=== PATIENT | male | born 1940 | race Caucasian/White ===

== ENCOUNTER 2017-10-03 18:32 | Observation (INO) ==
--- NOTE | 2017-10-03 18:54 | Emergency Department Note ---
Disposition Clinical Impression: Limb ataxia, Dysarthria Disposition: Admitted As Inpatient Condition: Good Neuro HPI - General Chief Complaint: ED Neuro Symptoms/Deficit Stated Complaint: Neuro Sx Time Seen by Provider: 10/03/17 18:38 Source: patient, EMS Mode of arrival: EMS Limitations: no limitations Nursing Notes Reviewed: Yes Vital Signs Reviewed: Yes - History of Present Illness HPI Narrative: 77-year-old male history of prior subdural hemorrhage treated with craniotomy, atrial fibrillation currently just on aspirin who presents to the ER with a chief complaint of altered mental status. Family reports he was last seen normal at noon today. They went out and then when they came back home at 2:30 the patient was having difficulty speaking slurring his words and had trouble standing. No prior history of CVA in the past. Reported history of A. fib but only on aspirin drench otherwise not anticoagulated. No improvement of symptoms since they first saw him. Deny any head injury. States he did have a subdural bleed months ago they thought to be posttraumatic and had a resulting craniotomy. No other complaints. Onset of Symptoms Date: 10/03/17 Onset of Symptoms Time: 12:00 Symptom Onset Unknown: No Timing confirmed by: family member Location: speech, left arm, left leg History of same: No Severity: moderate Quality: weakness Symptoms Improving: No Improves with: none Worsens with: none Context: sudden onset On Anticoagulants: No Associated symptoms: Denies: chest pain, headaches, nausea/vomiting Treatments Prior to Arrival: none - Related Data Allergies/Adverse Reactions: Allergies Allergy/AdvReac Type Severity Reaction Status Date / Time No Known Allergies Allergy Verified 07/17/17 09:47 All systems ED: reviewed and negative except as stated. Constitutional: Denies: fever Cardiovascular: Denies: chest pain Respiratory: Denies: dyspnea Gastrointestinal: Denies: abdominal pain, nausea, vomiting Neurological: Denies: headache, numbness, paresthesias Past Medical History - Past Medical History Attestation: Yes The following information was validated with the patient. Source: patient (t), obtained from family Medical history: Reports: atrial fibrillation, CVA Psychiatric history: Reports: no psych history - Social History Smoking Status: Never smoker Smokeless Tobacco Status: No Alcohol use: Reports: none Drug use: Reports: none Physical Exam - General Limitations: no limitations General appearance: alert, in no apparent distress - Head Head exam: atraumatic, normocephalic - Eye Eye exam: Present: normal appearance, EOMI - ENT ENT exam: normal exam - Neck Neck exam: Present: normal inspection, full ROM - Chest Chest inspection: Present: normal inspection, symmetric chest wall rise - Respiratory Respiratory exam: Present: normal lung sounds bilaterally - Cardiovascular Cardiovascular exam: Present: regular rate, normal rhythm, normal heart sounds - Abdominal Exam Abdominal exam: Present: soft, Non-Tender. Absent: tenderness - Extremities Exam Extremities exam: Present: normal inspection, full ROM - Expanded Upper Extremity Exam Shoulder exam: Present: normal inspection, full ROM Arm exam: Present: normal inspection, full ROM Elbow exam: Present: normal inspection, full ROM Forearm/Wrist exam: Present: normal inspection, full ROM Hand exam: Present: normal inspection, full ROM - Expanded Lower Extremity Exam Hip/Pelvis exam: Present: normal inspection, full ROM Upper leg exam: Present: normal inspection, full ROM Knee exam: Present: normal inspection, full ROM Lower leg exam: Present: normal inspection, full ROM Ankle exam: Present: normal inspection, full ROM Foot/toe exam: Present: normal inspection, full ROM Neurovascular/Tendon exam: Absent: motor deficit, sensory deficit - Neurological Exam Neurological exam: Present: alert, other (GCS 15. Nonfocal neurologic exam. He does demonstrate ataxia of the left upper extremity. Motor and sensation intact. Cranial nerves II through XII grossly intact.) - Skin Skin exam: Present: warm, dry, intact Course Course Narrative: Patient seen and examined. Last known well was reported as 2:30 initially by family. Stroke alert called. After speaking with them again they report his last Amal was around noon. We will obtain a CT of the head as well as labs and EKG. We will also discussed with [facility] neurology. - Reevaluation(s) Reevaluation #1: Conveyed recommendations by neurology with the patient and family. 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 Reevaluation #2: Discussed results of CTA with the patient's family. They would rather stay here at this time. We will discuss for admission. - Consultations Consultation #1: I spoke with the on-call [facility] stroke neurologist. Discussed the patient's history exam imaging and labs so far. They report without motor or sensory loss is likely a cerebellar etiology. Recommend that he is outside the timeframe for any retrieval and with a NIH of 2 he is not a candidate for intravascular retrieval. They do recommend a CTA of the head and neck to evaluate for potential thrombus. They are agreeable with the patient coming there if the family chooses. I will discuss with the family for what their wishes are. Vital Signs Temperature 99 F 10/03/17 18:33 Pulse Rate 66 10/03/17 18:33 Respiratory Rate 16 10/03/17 18:33 Blood Pressure 139/89 10/03/17 18:33 O2 Sat by Pulse Oximetry 90 10/03/17 18:33 Temperature 98 F 10/03/17 21:23 Pulse Rate 76 10/03/17 21:50 Respiratory Rate 18 10/03/17 21:50 Blood Pressure 135/90 10/03/17 21:50 O2 Sat by Pulse Oximetry 95 10/03/17 21:50 Oxygen Delivery Oxygen Delivery Nasal Cannula Neuro Symptoms/Deficit - MDM Narrative Medical decision making narrative: 77-year-old male presents to the ER due to dysarthria and limb ataxia. Last known well at noon today. He presented outside the window for TPA. He was noted to have an NIH of 2 here. He was taken for emergent CT which showed a stable subdural. Case discussed with [facility] neurology who recommended CTA of the head and neck which was unremarkable. Other labs reviewed and unremarkable. Family wanted to stay here. He was given an aspirin on the department. He is admitted to the hospitalist service for dysarthria and limb ataxia. - Lab Data Lab results reviewed: Yes I reviewed the patient's lab results. Result diagrams: 10/03/17 18:50 10/03/17 18:50 Lab Results 10/03/17 10/03/17 10/03/17 Range/Units 18:50 18:50 18:50 WBC 5.7 (4.3-11.1) K/mcL RBC 4.58 (4.19-5.50) M/mcL Hgb 13.4 (12.9-16.9) g/dL Hct 42.6 (37.5-50.1) % MCV 93.0 (83.0-100.0) fL MCH 29.3 (28.0-33.3) pg MCHC 31.5 L (31.6-35.5) g/dL RDW 14.3 (11.5-14.5) % Plt Count 162 (140-400) K/mcL MPV 9.7 (9.4-12.4) fL Immature Gran % 0.3 (0-4) % Seg Neutrophils % 63.8 % Lymphocytes % 17.5 % Monocytes % 11.9 % Eosinophils % 5.6 % Basophils % 0.9 % Neutrophils # 3.7 (1.6-8.9) K/mcL Lymphocytes # 1.0 (0.6-4.6) K/mcL Monocytes # 0.7 (0.0-1.3) K/mcL Eosinophils # 0.3 (0.0-0.6) K/mcL Basophils # 0.1 (0.0-0.2) K/mcL PT 12.4 H (9.4-12.1) Seconds INR 1.1 APTT 28.4 (26.0-36.0) Seconds Sodium 134 L (136-145) mEq/L Potassium 4.6 (3.5-5.1) mEq/L Chloride 100 (98-107) mEq/L Carbon Dioxide 29 (23-29) mEq/L BUN 12 (8-23) mg/dL Creatinine 0.73 (0.70-1.30) mg/dL Est GFR ( Amer) > 60 (> 60) Est GFR (Non-Af Amer) > 60 (> 60) BUN/Creatinine Ratio 16 (6-26) Glucose 105 (70-105) mg/dL Calculated Osmolality 278 L (280-300) Calcium 8.5 L (8.6-10.3) mg/dL Troponin I (< 0.04) ng/mL 10/03/17 Range/Units 18:50 WBC (4.3-11.1) K/mcL RBC (4.19-5.50) M/mcL Hgb (12.9-16.9) g/dL Hct (37.5-50.1) % MCV (83.0-100.0) fL MCH (28.0-33.3) pg MCHC (31.6-35.5) g/dL RDW (11.5-14.5) % Plt Count (140-400) K/mcL MPV (9.4-12.4) fL Immature Gran % (0-4) % Seg Neutrophils % % Lymphocytes % % Monocytes % % Eosinophils % % Basophils % % Neutrophils # (1.6-8.9) K/mcL Lymphocytes # (0.6-4.6) K/mcL Monocytes # (0.0-1.3) K/mcL Eosinophils # (0.0-0.6) K/mcL Basophils # (0.0-0.2) K/mcL PT (9.4-12.1) Seconds INR APTT (26.0-36.0) Seconds Sodium (136-145) mEq/L Potassium (3.5-5.1) mEq/L Chloride (98-107) mEq/L Carbon Dioxide (23-29) mEq/L BUN (8-23) mg/dL Creatinine (0.70-1.30) mg/dL Est GFR ( Amer) (> 60) Est GFR (Non-Af Amer) (> 60) BUN/Creatinine Ratio (6-26) Glucose (70-105) mg/dL Calculated Osmolality (280-300) Calcium (8.6-10.3) mg/dL Troponin I < 0.03 (< 0.04) ng/mL - Radiology Data Radiology results reviewed: Yes I reviewed the patient's radiology results. Head CT 10/03/17 18:38 IMPRESSION: Stable appearance of chronic left-sided subdural fluid collection. No acute process is seen, although artifact limits evaluation. D/ / 10/03/2017 19:20:03 Justin Batres MD / [facility] [place] Interpreting Provider: Justin Batres MD Head CTA 10/03/17 19:10 IMPRESSION: No flow limiting stenosis or branch occlusion detected within the head or neck. D/ / Kang Joshi MD / Kang Joshi MD Interpreting Provider: Kang Joshi MD Neck CTA 10/03/17 19:10 IMPRESSION: No flow limiting stenosis or branch occlusion detected within the head or neck. D/ / Kang Joshi MD / Kang Joshi MD Interpreting Provider: Kang Joshi MD - EKG Data EKG attestation: Yes I reviewed and interpreted this EKG. EKG results narrative: EKG demonstrates sinus rhythm with a rate of 75 bpm. Normal axis. Normal intervals. Normal R-wave progression. No gross ST elevations or depressions. No acute ischemic findings. No significant changes from previous EKG NIH Stroke Scale - Level of Consciousness LOC: Alert - LOC Questions LOC Questions: Answers both correctly - LOC Commands LOC Commands: Performs both correctly - Best Gaze Best Gaze: Normal - Visual Visual: No visual loss - Facial Palsy Facial Palsy: Normal - Motor Arms Motor Arm-Left: No drift for 10 seconds Motor Arm-Right: No drift for 10 seconds - Motor Legs Motor Leg-Left: No drift for 5 seconds Motor Leg-Right: No drift for 5 seconds - Limb Ataxia Limb Ataxia: Present in ONE limb - Sensory Sensory: Normal - Best Language Best Language: No aphasia - Dysarthria Dysarthria: Mild, slurs some words - Extinction and Inattention Extinction and Inattention: Normal - NIHSS Total Score NIHSS Total Score: 2 TPA Checklist - LKW: 3-4.5 hrs Add. Warnings/Precautions Patient/family understanding: The patient/family members have been counseled and understood the risk, benefit , and alternatives of treatment. Attestation Statement - Attestation Attestation: I examined this patient and my medical decision-making was reviewed with the Resident Physician, Dr. Nichols. I agree with the documented findings, disposition and treatment plan as described except to the extent set forth below. Patient is a 77-year-old elderly white male with a history of prior subdural with craniotomy and atrial fibrillation on aspirin who presents to the emergency department by EMS today following reported difficulty with speech and walking. Patient's arrived shortly following EMS arrival and states that the last known well was around noon today and patient's daughter had returned around 2:30 finding the patient with these changes and EMS was called. Patient arrives awake alert oriented to person place with dysarthria and ataxic limbs. Patient denied any falls or trauma, no symptoms of chest pain pressure or heaviness, no headaches or visual changes, and no focal weakness or numbness of the upper extremities or lower extremities. Due to patient's neurologic symptoms stroke alert was called by his outside the timeframe for any consideration for TPA. Patient was sent to CT following bedside Accu-Chek. I agree with the patient's physical exam findings as documented. Upon return from CT patient had an EKG obtained showing atrial fibrillation with a normal rate and no ischemia. Unchanged from prior EKGs. Patient had chest x-ray which was unremarkable. CT head noncontrast study shows evidence of his old subdural but no acute intracranial findings. Case was discussed with [facility] neurology and he will patient does not candidate for intervention. Did recommend further CTA of the head and neck for further evaluation of neurologic symptoms. Patient's neurologic exam remained stable over time. Patient's labs overall are unremarkable CTA head and neck was within normal limits. Patient was administered aspirin and will be admitted here to the medicine service for further evaluation and management. Case was discussed with the hospitalist accepted patient for admission.
[2017-10-03 18:56] LABS: Basophils # 0.1 K/mcL (0.0-0.2); Basophils % 0.9 %; Eosinophils # 0.3 K/mcL (0.0-0.6); Eosinophils % 5.6 %; Hematocrit 42.6 % (37.5-50.1); Hemoglobin 13.4 g/dL (12.9-16.9); Immature Granulocytes % 0.3 % (0-4); Lymphocytes % 17.5 %; Mean Corpuscular HGB Conc 31.5 g/dL (31.6-35.5); Mean Corpuscular Hemoglobin 29.3 pg (28.0-33.3); Mean Platelet Volume 9.7 fL (9.4-12.4); Monocytes # 0.7 K/mcL (0.0-1.3); Monocytes % 11.9 %; Neutrophils # 3.7 K/mcL (1.6-8.9); Platelet Count 162 K/mcL (140-400); Red Blood Count 4.58 M/mcL (4.19-5.50); Red Cell Distribution Width 14.3 % (11.5-14.5); Segmented Neutrophils % 63.8 %
[2017-10-03 19:06] LABS: INR 1.1; Prothrombin Time 12.4 Seconds (9.4-12.1)
[2017-10-03 19:08] LABS: Activated Partial Thrombo Time 28.4 Seconds (26.0-36.0)
[2017-10-03 19:44] LABS: BUN/Creatinine Ratio 16 (6-26); Blood Urea Nitrogen 12 mg/dL (8-23); Calcium 8.5 mg/dL (8.6-10.3); Carbon Dioxide 29 mEq/L (23-29); Chloride 100 mEq/L (98-107); Glucose 105 mg/dL (70-105); Osmolality,Calculated 278 (280-300); Potassium 4.6 mEq/L (3.5-5.1); Sodium 134 mEq/L (136-145); eGFR For African Americans > 60 (> 60); eGFR For Non-African Americans > 60 (> 60)
[2017-10-03] MEDS ORDERED: Aspirin 325 MG TABLET PO ONE (21:35)
[2017-10-03] MEDS ORDERED: Naloxone 0.4 MG/ML INJ IVP PRN (22:12)
[2017-10-03] MEDS ORDERED: Ringers Solution, Lactated 1,000 ML IVC SCH (22:15)
--- NOTE | 2017-10-03 22:16 | Internal Med History&Physical ---
Date of Encounter: 10/03/17 Time of Encounter: 22:16 Assessment and Plan (1) CVA (cerebral vascular accident) Current visit: Yes Status: Acute uncomfirmed CVA. Admitted to r/o CVA. Possible TIA ? check MRI brain in the a.m PT,OT, speech eval TTE, carotid dopplers neuro check dyspaghia diet, aspiration risk for now IVF continue ASA 325 for now. May consider escalate to plavix Hx of AFib chronic - AC contraindicated due to recurrent fall and hx of subdural hematoma from fall start lipitor Qualifiers: Laterality of affected vessel: unspecified Qualified Code(s): I63.419 - Cerebral infarction due to embolism of unspecified middle cerebral artery (2) Subdural hematoma, chronic Current visit: Yes Status: Acute chronic (3) Chronic a-fib Current visit: Yes Status: Acute on 325 ASA takes metoprolol once daily - will use best judgement and start toprol 50mg QD will bring med list in a.m anticoagulation contraindicated due to hx of fall and bleed (4) HTN (hypertension) Current visit: Yes Status: Acute does not know medications. will bring med list in a.m Qualifiers: Hypertension type: essential hypertension Qualified Code(s): I10 - Essential (primary) hypertension Internal Medicine - H&P: HPI Chief complaint: could not walk and speaking issues History of present illness: Mr. Zambrano is a 77 year old male who presents with acute onset could not walk and speaking issues. Admit for TIA/CVA eval. Last seen normal at noon time. Found abnormal at around 2pm with slurred speech , poor fluency. Also associated with b/l LE ataxia, weakness. Was sent to ED where they discussed with [facility] stroke center rec CT NC-head, CTA that was completed. On my evaluation at 10pm, his speech has improved. He has a hx of Chronic AFib on 325 ASA - not on anticoagulation because of recurrent falls. Has HTN and HLD. TIA in may 2013. In 2013, suffered from traumatic subdural from fall and had to be evacuated via craniotomy at [facility]. He lives with at home. In Jul 2017, had a fall that hurt his right shoulder with limited mobility and managed conservatively. EKG personally reviewed with jaden Jama, AFib CT/CT angio neck IMPRESSION: No flow limiting stenosis or branch occlusion detected within the head or neck. CT/CT angio head IMPRESSION: No flow limiting stenosis or branch occlusion detected within the head or neck. CT/CT stroke alert head wo con IMPRESSION: Stable appearance of chronic left-sided subdural fluid collection. No acute process is seen, although artifact limits evaluation. Past Med Surg Social Fam HX - Past Medical History Medical history: atrial fibrillation, CVA Psychiatric history: no psych history - Past Surgical History Surgical History: other (craniotomy) - Social History Smoking Status: Never smoker Smokeless Tobacco Status: No Alcohol use: none Drug use: none - Additional Family History Additional family history: HTN Internal Medicine - H&P: Meds 3 Allergy/AdvReac Type Severity Reaction Status Date / Time No Known Allergies Allergy Verified 07/17/17 09:47 All Systems PM: A 10-system review of systems was performed and is negative for pertinent findings except as documented above in the HPI. Review of systems: ROS 14 point review of systems reviewed as best as possible given presentation. Pertinent positive or negative as per HPI or otherwise reviewed as negative - Constitutional Vitals: Temp Pulse Resp BP Pulse Ox 98 F 76 18 135/90 95 10/03/17 21:23 10/03/17 21:50 10/03/17 21:50 10/03/17 21:50 10/03/17 21:50 Exam: General - AAO x 3 Psych - Appropriate affect/speech. No agitation Eyes - ROSALINO. Eye lids intact. No scleral icterus Neuro - Speech slurring that is preent, RUE with limited ROM due to fall and MSK injury, UE power 4/5, LE power 4-/5. Otherwise, no gross CN deficits. Heart - Irregularly irregular. S1 and S2 present. No added HS/murmurs appreciated. No elevated JVD appreciated. Lung - Adequate air entry b/l, No crackles/wheezes appreciated GI - Soft, non-tender. No hepatosplenomegaly/ascites. BS+ - No CVA/suprapubic tenderness or palpable bladder distension Skin - Intact. No rash/petechiae/ecchymosis. Warm extremities. +1 b/l LE edema Internal Med - H&P Results - Labs CBC & Chem 7: 10/03/17 18:50 10/03/17 18:50 Labs: Short CBC 10/03/17 Range/Units 18:50 WBC 5.7 (4.3-11.1) K/mcL Hgb 13.4 (12.9-16.9) g/dL Hct 42.6 (37.5-50.1) % Plt Count 162 (140-400) K/mcL Neutrophils # 3.7 (1.6-8.9) K/mcL BMP 10/03/17 18:50 Sodium 134 L Potassium 4.6 Chloride 100 Carbon Dioxide 29 BUN 12 Creatinine 0.73 Glucose 105 Calcium 8.5 L Cardiac Enzymes 10/03/17 Range/Units 18:50 Troponin I < 0.03 (< 0.04) ng/mL - Impressions ITS Impressions Head CT 10/03/17 18:38 IMPRESSION: Stable appearance of chronic left-sided subdural fluid collection. No acute process is seen, although artifact limits evaluation. D/ / 10/03/2017 19:20:03 Justin Batres MD / [facility] [place] Interpreting Provider: Justin Batres MD Head CTA 10/03/17 19:10 IMPRESSION: No flow limiting stenosis or branch occlusion detected within the head or neck. D/ / Kang Joshi MD / Kang Joshi MD Interpreting Provider: Kang Joshi MD Neck CTA 10/03/17 19:10
[2017-10-04 05:35] LABS: Alanine Aminotransferase 7 Units/L (7-52); Albumin 3.5 g/dL (3.5-5.7); Albumin/Globulin Ratio 1.1 (1.1-2.2); Alkaline Phosphatase 68 Units/L (34-104); Aspartate Amino Transferase 17 Units/L (13-39); BUN/Creatinine Ratio 17 (6-26); Bilirubin,Total 0.5 mg/dL (0.3-1.0); Blood Urea Nitrogen 10 mg/dL (8-23); Calcium 8.8 mg/dL (8.6-10.3); Carbon Dioxide 27 mEq/L (23-29); Chloride 100 mEq/L (98-107); Chol/HDL Ratio 3.9 (0-4.9); Cholesterol 140 mg/dL (< 200); Globulin 3.1 g/dL (2.4-3.5); Glucose 89 mg/dL (70-105); HDL Cholesterol 36 mg/dL (40-59); LDL Cholesterol,Calculated 92 mg/dL (0-99); Magnesium 1.7 mg/dL (1.6-2.6); Osmolality,Calculated 277 (280-300); Potassium 4.1 mEq/L (3.5-5.1); Sodium 134 mEq/L (136-145); Total Protein 6.6 g/dL (6.4-8.9); Triglycerides 59 mg/dL (< 150); eGFR For African Americans > 60 (> 60); eGFR For Non-African Americans > 60 (> 60)
[2017-10-04] MEDS ORDERED: Metoprolol XL (24 HR) Succ 50 MG TAB.ER.24H PO SCH (09:00)
[2017-10-04] MEDS ORDERED: Sennosides 8.6 MG TABLET PO PRN (14:58)
[2017-10-04] MEDS ORDERED: Benzonatate 100 MG CAPSULE PO PRN (14:58)
--- NOTE | 2017-10-04 16:00 | Internal Med Progress Note ---
Date of Encounter: 10/04/17 Time of Encounter: 15:58 - Assessment and plan (1) PNA (pneumonia) Current Visit: Yes Status: Acute Assessment and plan: Patient was wheezing with cough productive for some yellowish-white sputum on exam, he was decreased He states he has been coughing and wheezing for about 4 weeks. Chest x-ray revealed mild bibasilar airspace disease atelectasis or pneumonia DuoNeb's every 4 hours scheduled Levaquin daily 750 mg IV O2 to maintain sats greater than 88% in a patient with no home O2 Qualifiers: Pneumonia type: due to unspecified organism Qualified Code(s): J18.9 - Pneumonia, unspecified organism (2) TIA (transient ischemic attack) Current Visit: Yes Status: Acute Assessment and plan: Mr. Zambrano is a 77 year old male who presented with acute onset of inability to ambulate and slurred speech with difficulty finding words. He stated his son helped him down the steps to the couch and only remembered when he got up to go make his granddaughter a sandwhich and found out that his legs would not hold him. He was reported last seen normal at noon time. Found abnormal at around 2pm with slurred speech, poor fluency. Also associated with bilateral lower extremity ataxia and weakness. The squad was called and he was brought into the emergency room for evaluation and admitted for rule out CVA/TIA. They discussed with the [facility] stroke center with recommendations CT NC-head, CTA that was completed. On evaluation at 10pm his speech has improved. He has a history of Chronic AFib on 325 ASA - not on anticoagulation because of recurrent falls. Has HTN, HLD, TIA in May 2013. In 2013, suffered from traumatic subdural hematoma from fall which had to be evacuated via craniotomy at [facility]. He lives with at home. In Jul 2017, he had a fall which resulted in a very displaced comminuted right proximal humeral fracture with a right shoulder with limited mobility, managed conservatively. EKG atrial fibrillation with rate 75 CTA of the head and neck with no occlusion or stenosis, CT of the head stable, left-sided subdural hematoma MRI report is pending Echocardiogram and carotid duplex imaging has been completed but reports are pending Discussed with neurologist and he will see the patient in the a.m. Qualifiers: Transient cerebral ischemia type: unspecified Qualified Code(s): G45.9 - Transient cerebral ischemic attack, unspecified (3) Subdural hematoma, chronic Current Visit: No Status: Chronic Assessment and plan: Stable according to CT of the head obtained in the ER (4) HTN (hypertension) Current Visit: No Status: Chronic Assessment and plan: Pressure is stable continue her medications Qualifiers: Hypertension type: essential hypertension Qualified Code(s): I10 - Essential (primary) hypertension (5) Chronic a-fib Current Visit: No Status: Chronic Assessment and plan: Rate is controlled, anticoagulation contraindicated due to hx of fall and bleed continue asa 325 mg (6) Limb ataxia Current Visit: Yes Status: Acute Assessment and plan: please see note above PT and OT consult - Subjective Interval history: Patient is lying in bed in no acute distress. He is very much a conversationalist and we had quite a discussion about how he came to be in the hospital and his past hobbies and family choice. He does have some slurred speech which she said is new. He states his right arm is basically nonfunctional secondary to an old fracture that was never repaired. He is moving his other extremities and - Constitutional Vitals: Temp Pulse Resp BP Pulse Ox 97.9 F 56 16 149/90 96 10/04/17 15:47 10/04/17 15:47 10/04/17 15:47 10/04/17 15:47 10/04/17 15:47 General appearance: Present: cooperative, A&O X 3, pleasant, no acute distress, answers questions appropriately - Head Head exam: Present: atraumatic, normocephalic - Eye Eye exam: Present: conjuntiva pink, sclera anicteric - Neck Neck exam general surgery: Present: supple, trachea midline. Absent: lymphadenopathy - Respiratory Respiratory exam: Present: decreased breath sounds, wheezes. Absent: accessory muscle use, chest wall tenderness, rales, respiratory distress, rhonchi Additional comments: Cough on forced expiration - Cardiovascular Cardiovascular exam: Present: irregular rhythm. Absent: diastolic murmur, gallop, JVD, rubs, systolic murmur - GI/Abdominal GI/Abdominal exam: Present: normal bowel sounds, soft, no peritoneal signs. Absent: distended, tenderness - Extremities Exam Extremities exam: Present: warm, radial pulses palpable and symmetrical. Absent : calf tenderness, cyanotic, pedal edema Additional comments: Right upper extremity with old fracture and limited strength and mobility - Neurological Exam Neurological exam: Present: alert, oriented X3. Absent: strengths equal and symetr throughout, pronater drift, facial droop, speech deficit Additional comments: Slightly slurred speech - Skin Skin exam: Present: dry, intact, warm Internal Medicine: Result - Labs CBC & Chem 7: 10/03/17 18:50 10/04/17 04:04 Labs: BMP 10/04/17 04:04 Sodium 134 L Potassium 4.1 Chloride 100 Carbon Dioxide 27 BUN 10 Creatinine 0.60 L Glucose 89 Calcium 8.8 Liver Function 10/04/17 Range/Units 04:04 Total Bilirubin 0.5 (0.3-1.0) mg/dL AST 17 (13-39) Units/L ALT 7 (7-52) Units/L Alkaline Phosphatase 68 (34-104) Units/L Albumin 3.5 (3.5-5.7) g/dL - ABG Interpretation ABG results: PT/INR, D-dimer PT 12.4 Seconds (9.4-12.1) H 10/03/17 18:50 - Impressions Impressions Chest X-Ray 10/04/17 12:05 IMPRESSION: Mild bibasilar airspace disease, atelectasis or pneumonia. D/ / Cadence Delgado Cha, MD / Cadence Delgado Cha, MD Interpreting Provider: Cadence Delgado Cha, MD Consult Discharge Plan - Plan Referrals: Philip Jimenes MD [Primary Care Provider] -
[2017-10-04] MEDS: Levofloxacin 750 MG/150 ML 750 MG/150 ML BAG IVPB SCH (17:27)
[2017-10-04] MEDS: amLODIPine 5 MG TABLET PO SCH (17:28)
[2017-10-04] MEDS: Aspirin Enteric Coated 325 MG Tablet PO SCH (17:28)
[2017-10-04] MEDS: Metoprolol XL (24 HR) Succ 50 MG TAB.ER.24H PO SCH (17:28)
[2017-10-04 18:50] LABS: Adenovirus Not Detected (Not Detect); Bordetella Pertussis Not Detected (Not Detect); Chlamydophila pneumoniae Not Detected (Not Detect); Coronavirus 229E Not Detected (Not Detect); Coronavirus HKU1 Not Detected (Not Detect); Coronavirus NL63 Not Detected (Not Detect); Coronavirus OC43 Not Detected (Not Detect); Human Metapneumovirus Not Detected (Not Detect); Human Rhinovirus/Enterovirus Not Detected (Not Detect); Influenza A Subtype 2009 H1 Not Detected (Not Detect); Influenza A Untypeable Not Detected (Not Detect); Influenza B Not Detected (Not Detect); Mycoplasma pneumoniae Not Detected (Not Detect); Parainfluenza Virus 1 Not Detected (Not Detect); Parainfluenza Virus 2 Not Detected (Not Detect); Parainfluenza Virus 3 Not Detected (Not Detect); Parainfluenza Virus 4 Not Detected (Not Detect); Respiratory Syncytial Virus Not Detected (Not Detect)
[2017-10-04] MEDS: Ipratropium/Albuterol Neb 3 ML IH SCH ×3 (19:17→23:49)
[2017-10-05] MEDS: 0.9 % Sodium Chloride 1,000 ML IVC SCH ×2 (04:00→20:27)
[2017-10-05] MEDS: Ipratropium/Albuterol Neb 3 ML IH SCH ×5 (04:18→20:11)
[2017-10-05 04:45] LABS: Basophils % 0.8 %; Eosinophils # 0.3 K/mcL (0.0-0.6); Eosinophils % 6.7 %; Hematocrit 42.3 % (37.5-50.1); Hemoglobin 13.3 g/dL (12.9-16.9); Immature Granulocytes % 0.3 % (0-4); Lymphocytes # 1.2 K/mcL (0.6-4.6); Lymphocytes % 32.8 %; Mean Corpuscular HGB Conc 31.4 g/dL (31.6-35.5); Mean Corpuscular Volume 92.4 fL (83.0-100.0); Mean Platelet Volume 10.3 fL (9.4-12.4); Monocytes # 0.6 K/mcL (0.0-1.3); Monocytes % 15.2 %; Neutrophils # 1.7 K/mcL (1.6-8.9); Platelet Count 151 K/mcL (140-400); Red Blood Count 4.58 M/mcL (4.19-5.50); Red Cell Distribution Width 14.1 % (11.5-14.5); Segmented Neutrophils % 44.2 %
[2017-10-05] MEDS: Magnesium Oxide 400 MG TABLET PO SCH (07:29)
[2017-10-05] MEDS: Metoprolol XL (24 HR) Succ 50 MG TAB.ER.24H PO SCH (07:29)
[2017-10-05] MEDS: Levofloxacin 750 MG/150 ML 750 MG/150 ML BAG IVPB SCH (07:30)
[2017-10-05] MEDS: Aspirin Enteric Coated 325 MG Tablet PO SCH (07:30)
[2017-10-05] MEDS: amLODIPine 5 MG TABLET PO SCH (07:30)
--- NOTE | 2017-10-05 10:40 | Neurology - Consult Note ---
<BiancaParvez soni - Last Filed: 10/05/17 16:34> Date of Encounter: 10/05/17 Time of Encounter: 10:36 Assessment and Plan (1) Limb ataxia Current Visit: Yes Status: Acute Patient presents with lower extremity weakness. Patient states that he was profoundly weak with difficulty walking prior to arrival but feels better at this time. Muscle strength testing reveals no weakness in the lower extremity however the patient does have an ataxic gait. The states that he has always had balance issues. MRI of the brain as well head and neck CTA were unremarkable for any acute abnormality. This does not appear to be CVA however TIA certainly differentials the patient is at risk even his underlying hypertension and atrial fibrillation which is not anticoagulated for due to history of a subdural hematoma. His weakness could also be a manifestation of his influenza and pneumonia, this is more likely given that the patient has improved over the last several days. Patient has cerebellar atrophy on MRI which could certainly be contributing to his ataxic findings. We will check B12 and folate as well as CK. (2) Influenza A Current Visit: Yes Status: Acute (3) Subdural hematoma, chronic Current Visit: No Status: Chronic (4) Chronic a-fib Current Visit: No Status: Chronic History of Present Illness Chief complaint: Weakness HPI: Mr. Zambrano is a 77 year old male with history of "subdural hematoma," atrial fibrillation, hypertension who presents with lower extremity weakness. Patient states that on the morning of arrival he attempted to get up and walk to the kitchen to make a sandwich. He found that he had difficulty getting up off the couch and had a very difficult time walking. He states he was able to shuffle his feet but could not lift his feet off the ground and walk. After speaking to his he called the squad for profound weakness. His stated that his speech appeared to be slurred at that time. He states that 3 days prior to arrival he had constant runny nose, sneezing, coughing. He states he normally has bowel problems at baseline and should use a cane at home but does not. He has a history of multiple falls including a fall 4 years ago which resulted in a subdural hematoma for which he underwent neurosurgical intervention including craniotomy. At this time he denies any new weakness, numbness, tingling, vision changes Past Med Surg Social Fam HX - Past Medical History Medical history: atrial fibrillation, CVA Psychiatric history: no psych history - Past Surgical History Surgical History: other - Social History Smoking Status: Never smoker Smokeless Tobacco Status: No Alcohol use: none Drug use: none - Family History Mother Adopted: No Living Status: Age at : 89 Hx Family Neurologic Disorders: Yes (Stroke) Father Living Status: Age at : 69 Hx Family Cardiac Disorders: Yes ([place]) Medications and Allergies Benzonatate [Benzonatate] 100 mg PO TID PRN 10/04/17 [History] Losartan Potassium [Cozaar] 100 mg PO DAILY 10/04/17 [History] Magnesium Oxide [Mag-Oxide] 400 mg PO DAILY 10/04/17 [History] Metoprolol XL (24 HR) Succ [Toprol XL] 100 mg PO DAILY 10/04/17 [History] Omeprazole [PriLOSEC] 20 mg PO DAILY 10/04/17 [History] Sennosides [Senna] 8.6 mg PO DAILY PRN 10/04/17 [History] Tamsulosin HCl [Flomax] 0.4 mg PO DAILY 10/04/17 [History] amLODIPine [Norvasc] 5 mg PO DAILY 10/04/17 [History] 3 Allergy/AdvReac Type Severity Reaction Status Date / Time No Known Allergies Allergy Verified 10/04/17 11:00 All Systems: A 10-system review of systems was performed and is negative for pertinent findings except as documented above in the HPI. Physical Examination - Vital Signs Vital Signs: Initial Vital Signs Temp Pulse Resp BP Pulse Ox 99 F 66 16 139/89 90 10/03/17 18:33 10/03/17 18:33 10/03/17 18:33 10/03/17 18:33 10/03/17 18:33 - Constitutional General appearance: comfortable - Neurologic Sensorimotor examination: intact Motor examination - right side: 1/5: deltoids, 4/5: biceps, triceps, wrist flexion, wrist extension, mortgage loan reviewer, 5/5: hip flexors, tibialis Anterior, quadriceps , toe extension (EHL), plantarflexion Motor examination - left side: 5/5: deltoids, biceps, triceps, wrist flexion, wrist extension, hip flexors, mortgage loan reviewer, quadriceps, tibialis Anterior, toe extension (EHL), plantarflexion Detailed sensory examination: intact Reflex and gait examination: ataxic gate Reflexes: Biceps: 0, Brachioradialis: 0, Patella: 2+, Achilles: 2+ Mental Status Examination: awake, alert, oriented to person, oriented to place, oriented to time, follows commands appropriately, answers questions appropriately Cranial nerve examination: PERRL, EOMI, visual samuels intact, sensory to face intact, no facial asymmetry is present, no dysarthria, flexes SCM and trapezius muscles symmetrically with full power, tongue protrudes midline, no atrophy or facial fasiculations present Cerebellar examination: performs finger to nose and heel to ortega symmetrically without ataxia Results - Laboratory Findings CBC and BMP: 10/05/17 03:29 10/04/17 04:04 Abnormal lab findings: Abnormal lab results WBC 3.8 K/mcL (4.3-11.1) L 10/05/17 03:29 MCHC 31.4 g/dL (31.6-35.5) L 10/05/17 03:29 PT 12.4 Seconds (9.4-12.1) H 10/03/17 18:50 Sodium 134 mEq/L (136-145) L 10/04/17 04:04 Creatinine 0.60 mg/dL (0.70-1.30) L 10/04/17 04:04 Calculated Osmolality 277 (280-300) L 10/04/17 04:04 HDL Cholesterol 36 mg/dL (40-59) L 10/04/17 04:04 Influenza A (H3) PCR DETECTED (Not Detect) A 10/04/17 15:26 Consult Discharge Plan - Plan Referrals: Philip Jimenes MD [Primary Care Provider] - <Parvez Grewal - Last Filed: 10/05/17 16:50> Date of Encounter: 10/05/17 Time of Encounter: 16:44 Assessment and Plan (1) Limb ataxia Current Visit: Yes Status: Acute I agree with Dr. Owens's recommendations and assessment as stated above. I believe that he will continue to improve as his influenza resolves, he regains her strength. Other differentials considered and ruled out were; Guillain- Bellwood syndrome, viral myositis, thoracic or lumbar myelopathy, and there is no evidence of acute cerebrovascular ischemic event. The epidural hematoma located in the left frontoparietal region is stable. This is not effective in the current admission. I will reevaluate him at your request. History of Present Illness HPI: Mr. Zambrano is a 77 year old male who was seen for neurologic consultation secondary to generalized weakness and imbalance. Chart was reviewed and the patient was examined independently. The case was discussed with Dr. Hernandez. I agree with his assessment as stated above. All Systems: A 10-system review of systems was performed and is negative for pertinent findings except as documented above in the HPI. Review of Systems: 10 point review of systems is consistent with a history of present illness and is otherwise negative. Physical Examination - Vital Signs Vital Signs: Initial Vital Signs Temp Pulse Resp BP Pulse Ox 99 F 66 16 139/89 90 10/03/17 18:33 10/03/17 18:33 10/03/17 18:33 10/03/17 18:33 10/03/17 18:33 - Neurologic Cerebellar examination: performs finger to nose and heel to ortega symmetrically without ataxia (He performs finger to nose without ataxia, however he is ataxic with [id number] bilaterally.) Results - Laboratory Findings CBC and BMP: 10/05/17 03:29 10/04/17 04:04 Abnormal lab findings: Abnormal lab results WBC 3.8 K/mcL (4.3-11.1) L 10/05/17 03:29 MCHC 31.4 g/dL (31.6-35.5) L 10/05/17 03:29 PT 12.4 Seconds (9.4-12.1) H 10/03/17 18:50 Sodium 134 mEq/L (136-145) L 10/04/17 04:04 Creatinine 0.60 mg/dL (0.70-1.30) L 10/04/17 04:04 Calculated Osmolality 277 (280-300) L 10/04/17 04:04 HDL Cholesterol 36 mg/dL (40-59) L 10/04/17 04:04 Vitamin B12 6571 pg/mL (250-1100) H 10/05/17 11:00 Folate 20.1 ng/mL (3.0-16.0) H 10/05/17 11:00 Influenza A (H3) PCR DETECTED (Not Detect) A 10/04/17 15:26
--- NOTE | 2017-10-05 10:50 | Internal Med Progress Note ---
Date of Encounter: 10/05/17 Time of Encounter: 10:47 - Assessment and plan (1) PNA (pneumonia) Current Visit: Yes Status: Acute Assessment and plan: Differential is acute bronchitis versus pneumonia secondary to type a flu Patient was wheezing with cough productive for some yellowish-white sputum on exam and he was decreased 10/04/17 On examination this morning he has no wheezes, cough is much improved per patient report, air flow is increased He stated he had been coughing and wheezing for about 4 weeks. Viral panel was positive for flu type a Chest x-ray revealed mild bibasilar airspace disease atelectasis or pneumonia DuoNeb's every 4 hours scheduled Levaquin daily 750 mg IV O2 to maintain sats greater than 88% in a patient with no home O2 currently on 2 L nasal cannula. Will need 6 minute walk test on discharge Qualifiers: Qualified Code(s): J18.9 - Pneumonia, unspecified organism (2) TIA (transient ischemic attack) Current Visit: Yes Status: Acute Assessment and plan: Mr. Zambrano is a 77 year old male who presented with acute onset of inability to ambulate and slurred speech with difficulty finding words. He stated his son helped him down the steps to the couch and only remembered when he got up to go make his granddaughter a sandwhich and found out that his legs would not hold him. He was reported last seen normal at noon time. Found abnormal at around 2pm with slurred speech, poor fluency. Also associated with bilateral lower extremity ataxia and weakness. The squad was called and he was brought into the emergency room for evaluation and admitted for rule out CVA/TIA. They discussed with the [facility] stroke center with recommendations CT NC-head, CTA that was completed. On evaluation at 10pm his speech has improved. He has a history of Chronic AFib on 325 ASA - not on anticoagulation because of recurrent falls. Has HTN, HLD, TIA in May 2013. In 2013, suffered from traumatic subdural hematoma from fall which had to be evacuated via craniotomy at [facility]. He lives with at home. In Jul 2017, he had a fall which resulted in a very displaced comminuted right proximal humeral fracture with a right shoulder with limited mobility, managed conservatively. EKG atrial fibrillation with rate 75 CTA of the head and neck with no occlusion or stenosis, CT of the head stable, left-sided subdural hematoma MRI report is nothing acute, noted no change in the subdural hematoma Echocardiogram reviewed with LVEF 60%, indeterminate diastolic function, dilated RV with normal function, no evidence of PAF with agitated saline. Carotid duplex imaging has been completed but reports are pending Neuro consult Qualifiers: Qualified Code(s): G45.9 - Transient cerebral ischemic attack, unspecified (3) Subdural hematoma, chronic Current Visit: No Status: Chronic Assessment and plan: Stable according to CT of the head obtained in the ER and MRI report (4) HTN (hypertension) Current Visit: No Status: Chronic Assessment and plan: Blood Pressure is stable continue his medications Qualifiers: Qualified Code(s): I10 - Essential (primary) hypertension (5) Chronic a-fib Current Visit: No Status: Chronic Assessment and plan: Rate is well controlled, anticoagulation contraindicated due to hx of fall and bleed continue asa 325 mg (6) Limb ataxia Current Visit: Yes Status: Acute Assessment and plan: please see note above PT and OT consulted - Subjective Interval history: Patient is lying in bed in no acute distress. He is speaking normally this morning, the slurring of his speech has resolved. He passed his speech swallow is not placed on a regular diet. He did test positive for flu A and we discussed his recent sick contacts. He denies fever, chills, chest pain, shortness of breath, abdominal pain or discomfort, urinary changes, weakness of the extremities, or headache/dizziness. - Constitutional Vitals: Temp Pulse Resp BP Pulse Ox 97.4 F L 73 16 120/68 98 10/05/17 07:05 10/05/17 07:05 10/05/17 07:23 10/05/17 07:05 10/05/17 07:55 General appearance: Present: cooperative, A&O X 3, pleasant, no acute distress, answers questions appropriately - Head Head exam: Present: atraumatic, normocephalic - Eye Eye exam: Present: PERRL, conjuntiva pink, sclera anicteric Pupils: Present: PERRL - Neck Neck exam general surgery: Present: supple, trachea midline. Absent: lymphadenopathy, tenderness - Respiratory Respiratory exam: Present: CTAB. Absent: accessory muscle use, rales, respiratory distress, rhonchi, wheezes - Cardiovascular Cardiovascular exam: Present: irregular rhythm, +S1, +S2. Absent: diastolic murmur, gallop, rubs, systolic murmur - GI/Abdominal GI/Abdominal exam: Present: normal bowel sounds, soft, no peritoneal signs. Absent: distended, tenderness - Extremities Exam Extremities exam: Present: warm, radial pulses palpable and symmetrical. Absent : calf tenderness, cyanotic, pedal edema Additional comments: Right upper extremity with decreased range of motion and use secondary to old fracture - Neurological Exam Neurological exam: Present: alert, oriented X3, no focal deficits. Absent: pronater drift, facial droop, speech deficit - Skin Skin exam: Present: dry, intact, warm Internal Medicine: Result - Labs CBC & Chem 7: 10/05/17 03:29 10/04/17 04:04 Labs: Short CBC 10/05/17 Range/Units 03:29 WBC 3.8 L (4.3-11.1) K/mcL Hgb 13.3 (12.9-16.9) g/dL Hct 42.3 (37.5-50.1) % Plt Count 151 (140-400) K/mcL Neutrophils # 1.7 (1.6-8.9) K/mcL - ABG Interpretation ABG results: PT/INR, D-dimer PT 12.4 Seconds (9.4-12.1) H 10/03/17 18:50 - Impressions Impressions Chest X-Ray 10/04/17 12:05 IMPRESSION: Mild bibasilar airspace disease, atelectasis or pneumonia. D/ / Cadence Delgado Cha, MD / Cadence Delgado Cha, MD Interpreting Provider: Cadence Delgado Cha, MD Brain MRI 10/04/17 22:14 IMPRESSION: No acute intracranial abnormality. Status post left hemispheric craniotomy. Extra-axial collection along the left frontal parietal convexity measuring up to 1.2 cm in maximal thickness, stable since July 15, 2014. Mild local mass effect upon the subjacent brain parenchyma, without evidence of midline shift. Mild parenchymal volume loss. Minimal chronic microvascular disease. D/ / Canelo Kimball MD / Canelo Kimball MD Interpreting Provider: Canelo Kimball MD Echocardiogram 10/04/17 22:14 Impressions: LVEF 60%. Indeterminate diastolic function. Dilated RV with normal function. Bi-atrial enlargement. Mild mitral regurgitation. Mild tricuspid regurgitation. Mild pulmonary hypertension. Mild pulmonic regurgitation. No evidence of PFO with agitated saline contrast. Left Ventricular Wall Motion: Rest Echo Findings The mid anterior septal and mid inferior lateral rudolph were not visualized. All other wall segments showed normal motion. Findings: Study Quality * Technically challenging due to body habitus. ECG Findings * Atrial fibrillation. Left Ventricle * LVEF 60%. * Normal LV size. * LV wall thickness measurements not well obtained. * Indeterminate diastolic function. Right Ventricle * Dilated RV with normal function. Left Atrium * Severely dilated left atrium. Right Atrium * Severely dilated right atrium. Aortic Valve * Aortic valve not well visualized. * Trace aortic regurgitation. * No aortic stenosis. Mitral Valve * Normal mitral valve structure. * No mitral stenosis. * Mild mitral regurgitation. Tricuspid Valve * Tricuspid valve not well visualized. * Mild tricuspid regurgitation. * Estimated RA pressure is 8 mmHg. * Estimated RVSP is 40 mmHg. * Mild pulmonary hypertension. Pulmonic Valve * Pulmonic valve is not well visualized. * No pulmonic stenosis. * Mild pulmonic regurgitation. Pulmonary Artery * Pulmonary artery not well visualized. Aorta * Normally sized aortic root. Pericardium * There is no pericardial effusion present. Interatrial Septum * No evidence of PFO by color Doppler. * No evidence of PFO with agitated saline contrast. IVC * The IVC is not dilated. * < 50% respiratory change. Consult Discharge Plan - Plan Referrals: Philip Jimenes MD [Primary Care Provider] -
[2017-10-05 11:57] LABS: Folate 20.1 ng/mL (3.0-16.0)
[2017-10-06] MEDS: Ipratropium/Albuterol Neb 3 ML IH SCH ×5 (00:33→15:12)
[2017-10-06] MEDS: Metoprolol XL (24 HR) Succ 50 MG TAB.ER.24H PO SCH (08:43)
[2017-10-06] MEDS: Levofloxacin 750 MG/150 ML 750 MG/150 ML BAG IVPB SCH (08:44)
[2017-10-06] MEDS: amLODIPine 5 MG TABLET PO SCH (08:44)
[2017-10-06] MEDS: Aspirin Enteric Coated 325 MG Tablet PO SCH (08:44)
[2017-10-06] MEDS: Magnesium Oxide 400 MG TABLET PO SCH (08:44)
--- NOTE | 2017-10-06 13:16 | Discharge Summary ---
Date of Encounter: 10/06/17 Time of Encounter: 10:00 - Discharge Diagnosis (1) Respiratory failure with hypoxia Priority: Primary Status: Acute Comments: Patient presented to the ER initially with SPO2 90% on room air requiring supplemental oxygen-he was positive for influenza/pneumonia which is contributing to his hypoxia. Patient underwent a 6 minute walk test with oxygen saturations dropping down 85% he will require home oxygen Qualifiers: Chronicity: acute Qualified Code(s): J96.01 - Acute respiratory failure with hypoxia (2) Influenza A Priority: Secondary Status: Acute Comments: He had been experiencing cough and nasal congestion influenza swab was positive for influenza A We will continue with Tamiflu -in order to complete 10 day Continue with oxygen (3) PNA (pneumonia) Priority: Secondary Status: Acute Comments: 1 CXR Mild bibasilar airspace disease, atelectasis or pneumonia.continue Levaquin for five days 2 hypoxia on room air and on exertion continue with oxygen Qualifiers: Pneumonia type: due to unspecified organism Laterality: unspecified laterality Lung location: unspecified part of lung Qualified Code(s): J18.9 - Pneumonia, unspecified organism (4) Subdural hematoma, chronic Priority: Secondary Status: Chronic Comments: 1 patient has history of subdural hematoma from fall status post craniotomy- will continue with aspirin no other anticoagulation for now (5) Limb ataxia Priority: Secondary Status: Acute Comments: Patient has been experiencing lower extremityweakness-MRI of the brain and CTA were unremarkable-patient was seen by neurology-small. Be CVA however possibly TIA risk factors hypertension and atrial fibrillation not on anticoagulation. As well as weakness possibly related to influenza/pneumonia Seen by PT and OT-we will discharge with walker Require home health - Discharge Medications Prescriptions: Ipratropium/Albuterol Neb [Duoneb] 3 ml IH Q6HR #100 vial.neb levoFLOXacin [Levaquin] 750 mg PO DAILY #5 tablet Oseltamivir [Tamiflu] 75 mg PO BID #14 capsule Home Medications: Benzonatate 100 mg PO TID PRN 10/04/17 [History] Losartan Potassium [Cozaar] 100 mg PO DAILY 10/04/17 [History] Magnesium Oxide [Mag-Oxide] 400 mg PO DAILY 10/04/17 [History] Metoprolol XL (24 HR) Succ [Toprol Xl] 100 mg PO DAILY 10/04/17 [History] Omeprazole [PriLOSEC] 20 mg PO DAILY 10/04/17 [History] Sennosides [Senna] 8.6 mg PO DAILY PRN 10/04/17 [History] Tamsulosin HCl [Flomax] 0.4 mg PO DAILY 10/04/17 [History] amLODIPine [Norvasc] 5 mg PO DAILY 10/04/17 [History] Aspirin Enteric Coated [Aspirin EC] 325 mg PO DAILY tablet. 10/06/17 [Rx] Ipratropium/Albuterol Neb [Duoneb] 3 ml IH Q6HR #100 vial.neb 10/06/17 [Rx] Oseltamivir [Tamiflu] 75 mg PO BID #14 capsule 10/06/17 [Rx] levoFLOXacin [Levaquin] 750 mg PO DAILY #5 tablet 10/06/17 [Rx] Allergies/Adverse Reactions: 3 Allergy/AdvReac Type Severity Reaction Status Date / Time No Known Allergies Allergy Verified 10/04/17 11:00 Date of admission: 10/03/17 22:29 Primary care physician: Philip Jimenes MD Consults: 10/04/17 15:51 Consult to Neurology [CONS] Routine Consulting Provider: Neurology [facility] Reason for Consult: tia vs cva, hx subdural hematoma Time Notified: 15:52 Call Completed: Yes Discharging clinician: Kandice Goldstein Anticipated date of discharge: 10/06/17 - Patient Status Disposition: Home Health Service Condition: Good Functional capacity at discharge: uses cane/walker Overall status at discharge: patient is progressing back to baseline - Discharge Instructions Instructions: Levofloxacin (By mouth), Ipratropium/Albuterol (By breathing), Oseltamivir (By mouth), Influenza (GEN), Pneumonia (DC) Follow Up With: Wesley Mcdonnell MD [Partnered Physician] - 10/19/17 9:40 am Philip Jimenes MD [Primary Care Provider] - 10/12/17 1:15 pm - Diet and Activity Activity: ambulate only with your walker, wear oxygen at all times Diet: advance to your usual diet Interval History: Differential is acute bronchitis versus pneumonia secondary to type a flu Patient was wheezing with cough productive for some yellowish-white sputum on exam and he was decreased 10/04/17 On examination this morning he has no wheezes, cough is much improved per patient report, air flow is increased He stated he had been coughing and wheezing for about 4 weeks. Viral panel was positive for flu type a Chest x-ray revealed mild bibasilar airspace disease atelectasis or pneumonia DuoNeb's every 4 hours scheduled Levaquin daily 750 mg IV O2 to maintain sats greater than 88% in a patient with no home O2 currently on 2 L nasal cannula. Will need 6 minute walk test on discharge Qualifiers: Qualified Code(s): J18.9 - Pneumonia, unspecified organism (2) TIA (transient ischemic attack) Current Visit: Yes Status: Acute Assessment and plan: Mr. Zambrano is a 77 year old male who presented with acute onset of inability to ambulate and slurred speech with difficulty finding words. He stated his son helped him down the steps to the couch and only remembered when he got up to go make his granddaughter a sandwhich and found out that his legs would not hold him. He was reported last seen normal at noon time. Found abnormal at around 2pm with slurred speech, poor fluency. Also associated with bilateral lower extremity ataxia and weakness. The squad was called and he was brought into the emergency room for evaluation and admitted for rule out CVA/TIA. They discussed with the [facility] stroke center with recommendations CT NC-head, CTA that was completed. On evaluation at 10pm his speech has improved. He has a history of Chronic AFib on 325 ASA - not on anticoagulation because of recurrent falls. Has HTN, HLD, TIA in May 2013. In 2013, suffered from traumatic subdural hematoma from fall which had to be evacuated via craniotomy at [facility]. He lives with at home. In Jul 2017, he had a fall which resulted in a very displaced comminuted right proximal humeral fracture with a right shoulder with limited mobility, managed conservatively. EKG atrial fibrillation with rate 75 CTA of the head and neck with no occlusion or stenosis, CT of the head stable, left-sided subdural hematoma MRI report is nothing acute, noted no change in the subdural hematoma Echocardiogram reviewed with LVEF 60%, indeterminate diastolic function, dilated RV with normal function, no evidence of PAF with agitated saline. Carotid duplex imaging has been completed but reports are pending Neuro consult Hospital course: Mr. Zambrano is a 77 year old male who presented to the emergency department with lower extremity weakness. On morning of 10/03/2017 patient attempted to get up and walking to the kitchen to make a sandwich. He was having difficulty getting up off the couch and difficulty walking. He was able to shuffle his feet but was unable to lift his feet off the ground. His reports that he does have a history of balance issues. He has had several falls in the past 1 fall occurred 4 years ago which resulted in a subdural hematoma he underwent neurosurgical intervention including craniotomy. He has been experiencing runny nose sneezing and coughing over the past 3 days. Neurology saw patient- MRI of brain as well as head and neck CTA were unremarkable neurology does not suspect CVA however possible TIA due to history of atrial fibrillation and patient is not anticoagulated due to subdural hematoma and hypertension. As well as weakness could be related to influenza pneumonia. Patient was initiated on Tamiflu as well as Levaquin. He required oxygen support which he normally does not use a home. Attempted to ambulate patient without oxygen saturations dropped to 85%. He does have history of right sided right arm weakness which is chronic from a previous fall He underwent physical therapy and occupational therapy he will require outpatient home health. Presently he is hemodynamically stable at this time satting 98% on 2 L nasal cannula he is not wheezing denies any pain or discomfort and does not appear to be in respiratory distress. I reviewed medications, O2 and follow up with PCP in one week answered patient's and questions who verbalized understanding Time spent discussing smoking cessation with patient: 3 to 10 minutes - Time Spent with Patient Total time spent providing and/or coordinating discharge services: Less than 30 minutes - Constitutional Vitals: Temp Pulse Resp BP Pulse Ox 98.0 F 83 20 139/91 98 10/06/17 11:10 10/06/17 11:10 10/06/17 11:11 10/06/17 11:10 10/06/17 11:11 General appearance: Present: cooperative, A&O X 3, pleasant, no acute distress, answers questions appropriately - Head Head exam: Present: atraumatic, normocephalic - Eye Eye exam: Present: PERRL, conjuntiva pink, sclera anicteric Pupils: Present: PERRL - Neck Neck exam general surgery: Present: supple, trachea midline. Absent: lymphadenopathy - Respiratory Respiratory exam: Present: CTAB. Absent: accessory muscle use, rales, rhonchi, wheezes - Cardiovascular Cardiovascular exam: Present: RRR, +S1, +S2. Absent: diastolic murmur, gallop, rubs, systolic murmur - GI/Abdominal GI/Abdominal exam: Present: normal bowel sounds, soft, no peritoneal signs. Absent: distended, tenderness - Extremities Exam Extremities exam: Present: warm, radial pulses palpable and symmetrical. Absent : calf tenderness, cyanotic, pedal edema - Neurological Exam Neurological exam: Present: CN II-XII intact, oriented X3, no focal deficits. Absent: pronater drift, facial droop, speech deficit - Skin Skin exam: Present: dry, intact
[2017-10-06 14:15] VITALS: BP 158/94
--- NOTE | 2017-10-06 17:19 | Electrocardiograph Report ---
[address] [address] Test Date: 2017-10-03 Pat Name: Atif Zambrano Department: [id number] Room: 3B11 Gender: M Field Cane Scaler: : 1940 Requested By: Dmia Nichols Order Number: [id number] Reading MD: Bacilio Branch Measurements Intervals [place] Rate: 75 P: MD: 0 QRS: 15 QRSD: 101 T: 13 QT: 360 QTc: 388 Interpretive Statements ATRIAL FIBRILLATION ABNORMAL RHYTHM ECG Electronically Signed On 10-06-2017 17:17:58 EST by Bacilio Branch
--- NOTE | 2017-10-06 18:16 | Physician Discharge Referral ---
Home Health/Hosp Referral Info Transfer to: Home Health Provider in Charge Post Discharge: PCP - Diagnosis (1) Respiratory failure with hypoxia Priority: Primary Status: Acute (2) Influenza A Priority: Primary Status: Acute (3) PNA (pneumonia) Priority: Primary Status: Acute (4) Subdural hematoma, chronic Priority: Secondary Status: Chronic (5) Limb ataxia Priority: Secondary Status: Acute - Respiratory Orders Smoking Cessation: Smoking cessation has been advised. For more information, call the [place] Tobacco Quit Line at 1-666-DPZM-NOW. - Transfer Medications Prescriptions: Ipratropium/Albuterol Neb [Duoneb] 3 ml IH Q6HR #100 vial.neb levoFLOXacin [Levaquin] 750 mg PO DAILY #5 tablet Oseltamivir [Tamiflu] 75 mg PO BID #14 capsule Home Medications: Benzonatate 100 mg PO TID PRN 10/04/17 [History] Losartan Potassium [Cozaar] 100 mg PO DAILY 10/04/17 [History] Magnesium Oxide [Mag-Oxide] 400 mg PO DAILY 10/04/17 [History] Metoprolol XL (24 HR) Succ [Toprol Xl] 100 mg PO DAILY 10/04/17 [History] Omeprazole [PriLOSEC] 20 mg PO DAILY 10/04/17 [History] Sennosides [Senna] 8.6 mg PO DAILY PRN 10/04/17 [History] Tamsulosin HCl [Flomax] 0.4 mg PO DAILY 10/04/17 [History] amLODIPine [Norvasc] 5 mg PO DAILY 10/04/17 [History] Aspirin Enteric Coated [Aspirin EC] 325 mg PO DAILY tablet. 10/06/17 [Rx] Ipratropium/Albuterol Neb [Duoneb] 3 ml IH Q6HR #100 vial.neb 10/06/17 [Rx] Oseltamivir [Tamiflu] 75 mg PO BID #14 capsule 10/06/17 [Rx] levoFLOXacin [Levaquin] 750 mg PO DAILY #5 tablet 10/06/17 [Rx] Allergies/Adverse Reactions: 3 Allergy/AdvReac Type Severity Reaction Status Date / Time No Known Allergies Allergy Verified 10/04/17 11:00 Certification: Further, I certify that my clinical findings support that this patient is homebound (i.e. absences from home require considerable and taxing effort and are for medical reasons or jainism services or infrequently or short duration when for other reasons) because: Homebound Reason: Patient requires assistance of a person or device to safely leave home Attestation: My signature below is to certify that this patient is under my care and that I, or nurse practitioner, or a physician's certified medical technician assistant working with me, has a face-to -face encounter with this patient.
[2017-10-08 08:17] LABS: Mycoplasma pneumoniae IgG 0.69 U/L (<=0.09)
== END 2017-10-06 17:22 | disposition home health service (06) ==
LOC: 3BNU 18:32 → EMEROO 18:32 → 3BNU 23:02
PROVIDERS: ADMIT Internal Medicine Hematology & Oncology; ATTEND Registered Nurse

== ENCOUNTER 2020-09-13 11:16 | Observation (INO) ==
[2020-09-13] MEDS ORDERED: 0.9 % Sodium Chloride 1,000 ML IVC STA (11:54)
[2020-09-13 11:57] LABS: Mean Corpuscular HGB Conc 32.7 g/dL (31.6-35.5); Red Blood Count 4.63 M/mcL (4.19-5.50)
[2020-09-13 11:58] LABS: Hematocrit 43.4 % (37.5-50.1); Hemoglobin 14.2 g/dL (12.9-16.9); Mean Corpuscular Hemoglobin 30.7 pg (28.0-33.3); Mean Corpuscular Volume 93.7 fL (83.0-100.0); Mean Platelet Volume 10.6 fL (9.4-12.4); Platelet Count 216 K/mcL (140-400); Red Cell Distribution Width 14.1 % (11.5-14.5); White Blood Count 24.7 K/mcL (4.3-11.1)
[2020-09-13 12:24] LABS: Troponin I 0.08 ng/mL (< 0.04)
[2020-09-13] MEDS ORDERED: Piperacillin/Tazobactam 3.375 GM in 0.9 % Sodium Chloride Mini Bag 100 ML IVPB ONE (12:25)
[2020-09-13] MEDS ORDERED: Vancomycin 1,500 MG/265 ML IV.SOLN IVPB STA (12:25)
[2020-09-13 12:35] LABS: Alanine Aminotransferase 16 Units/L (7-52); Albumin 3.3 g/dL (3.5-5.7); Albumin/Globulin Ratio 0.8 (1.1-2.2); Alkaline Phosphatase 63 Units/L (34-104); Aspartate Amino Transferase 28 Units/L (13-39); BUN/Creatinine Ratio 28 (6-26); Bilirubin,Total 1.5 mg/dL (0.3-1.0); Blood Urea Nitrogen 19 mg/dL (8-23); Calcium 8.9 mg/dL (8.6-10.3); Carbon Dioxide 23 mEq/L (23-29); Chloride 101 mEq/L (98-107); Creatine Kinase 220 Units/L (30-223); Globulin 4.2 g/dL (2.4-3.5); Glucose 109 mg/dL (70-105); Magnesium 1.1 mg/dL (1.6-2.6); Osmolality,Calculated 285 (280-300); Potassium 3.3 mEq/L (3.5-5.1); Sodium 136 mEq/L (136-145); Total Protein 7.5 g/dL (6.4-8.9); eGFR For African Americans > 60 (> 60); eGFR For Non-African Americans > 60 (> 60)
[2020-09-13 12:39] LABS: Monocytes # 0.7 K/mcL (0.0-1.3)
[2020-09-13 12:40] LABS: Platelet Estimate Normal (Normal); Toxic Granulation Present (Not Present)
[2020-09-13 15:30] LABS: Bacteria,Urine Moderate per hpf (None-Few); Bilirubin,Urine Negative (Negative); Blood,Urine Large (Negative); Clarity,Urine Turbid (Clear); Color,Urine Yellow (Yellow); Glucose,Urine (UA) Normal (Normal); Ketones,Urine 10 mg/dL (Negative); Leukocyte Esterase,Urine Large (Negative); Mucus,Urine Few per lpf (None-Few); Nitrite,Urine Negative (Negative); Protein,Urine 70 mg/dL (Neg-Trace); RBC,Urine TNTC per hpf (0-3); Specific Gravity,Urine 1.027 (1.010-1.025); Urobilinogen,Urine Normal (Normal); WBC,Urine TNTC per hpf (0-3)
[2020-09-13] MEDS ORDERED: Ondansetron 4 MG/2 ML VIAL IVP PRN (15:36)
[2020-09-13] MEDS ORDERED: Acetaminophen 325 MG TABLET PO PRN (15:36)
[2020-09-13] MEDS ORDERED: Ringers Solution, Lactated 1,000 ML IVC SCH (16:45)
[2020-09-13] MEDS: Aspirin 81 MG TAB.CHEW PO SCH (17:24)
[2020-09-13] MEDS: Metoprolol XL (24 HR) Succ 50 MG TAB.ER.24H PO SCH (17:24)
[2020-09-13] MEDS: Piperacillin/Tazobactam 3.375 GM in 0.9 % Sodium Chloride Mini Bag 100 ML IVPB SCH (17:26)
[2020-09-14 00:56] LABS: Hematocrit 39.4 % (37.5-50.1); Mean Corpuscular Hemoglobin 30.1 pg (28.0-33.3); Mean Corpuscular Volume 94.3 fL (83.0-100.0); Mean Platelet Volume 10.7 fL (9.4-12.4); Platelet Count 205 K/mcL (140-400); Red Blood Count 4.18 M/mcL (4.19-5.50); Red Cell Distribution Width 14.3 % (11.5-14.5); White Blood Count 21.2 K/mcL (4.3-11.1)
[2020-09-14 00:57] LABS: Hemoglobin 12.6 g/dL (12.9-16.9)
[2020-09-14] MEDS: Piperacillin/Tazobactam 3.375 GM in 0.9 % Sodium Chloride Mini Bag 100 ML IVPB SCH ×4 (01:00→23:01)
[2020-09-14 01:14] LABS: BUN/Creatinine Ratio 28 (6-26); Blood Urea Nitrogen 17 mg/dL (8-23); Calcium 8.5 mg/dL (8.6-10.3); Carbon Dioxide 26 mEq/L (23-29); Chloride 105 mEq/L (98-107); Glucose 108 mg/dL (70-105); Osmolality,Calculated 286 (280-300); Phosphorous 3.2 mg/dL (2.7-4.5); Potassium 3.7 mEq/L (3.5-5.1); Sodium 137 mEq/L (136-145); eGFR For African Americans > 60 (> 60); eGFR For Non-African Americans > 60 (> 60)
[2020-09-14] MEDS: *HR* Enoxaparin 40 MG/0.4 ML SYRINGE SQ SCH (05:01)
[2020-09-14] MEDS: Metoprolol XL (24 HR) Succ 50 MG TAB.ER.24H PO SCH (08:45)
[2020-09-14] MEDS: Aspirin 81 MG TAB.CHEW PO SCH (08:45)
[2020-09-15] MEDS: *HR* Enoxaparin 40 MG/0.4 ML SYRINGE SQ SCH (05:20)
[2020-09-15 06:18] LABS: Hematocrit 39.9 % (37.5-50.1); Hemoglobin 12.4 g/dL (12.9-16.9); Mean Corpuscular HGB Conc 31.1 g/dL (31.6-35.5); Mean Corpuscular Hemoglobin 29.6 pg (28.0-33.3); Mean Corpuscular Volume 95.2 fL (83.0-100.0); Mean Platelet Volume 10.9 fL (9.4-12.4); Platelet Count 242 K/mcL (140-400); Red Blood Count 4.19 M/mcL (4.19-5.50); Red Cell Distribution Width 14.5 % (11.5-14.5); White Blood Count 10.9 K/mcL (4.3-11.1)
[2020-09-15] MEDS: Metoprolol XL (24 HR) Succ 50 MG TAB.ER.24H PO SCH ×2 (09:22→09:49)
[2020-09-15] MEDS: Piperacillin/Tazobactam 3.375 GM in 0.9 % Sodium Chloride Mini Bag 100 ML IVPB SCH (09:23)
[2020-09-15] MEDS: Aspirin 81 MG TAB.CHEW PO SCH ×2 (09:25→09:49)
[2020-09-15] MEDS: QUEtiapine Fumarate 25 MG TABLET PO SCH (21:43)
[2020-09-16 03:07] LABS: Hematocrit 39.2 % (37.5-50.1); Hemoglobin 12.2 g/dL (12.9-16.9); Mean Corpuscular HGB Conc 31.1 g/dL (31.6-35.5); Mean Corpuscular Hemoglobin 30.3 pg (28.0-33.3); Mean Corpuscular Volume 97.3 fL (83.0-100.0); Mean Platelet Volume 10.7 fL (9.4-12.4); Platelet Count 261 K/mcL (140-400); Red Blood Count 4.03 M/mcL (4.19-5.50); Red Cell Distribution Width 14.5 % (11.5-14.5); White Blood Count 7.2 K/mcL (4.3-11.1)
[2020-09-16 03:23] LABS: BUN/Creatinine Ratio 21 (6-26); Blood Urea Nitrogen 11 mg/dL (8-23); Calcium 8.5 mg/dL (8.6-10.3); Carbon Dioxide 25 mEq/L (23-29); Chloride 106 mEq/L (98-107); Glucose 84 mg/dL (70-105); Magnesium 1.6 mg/dL (1.6-2.6); Osmolality,Calculated 289 (280-300); Potassium 3.7 mEq/L (3.5-5.1); Sodium 140 mEq/L (136-145); eGFR For African Americans > 60 (> 60); eGFR For Non-African Americans > 60 (> 60)
[2020-09-16] MEDS: *HR* Enoxaparin 40 MG/0.4 ML SYRINGE SQ SCH (05:34)
[2020-09-16] MEDS: Metoprolol XL (24 HR) Succ 50 MG TAB.ER.24H PO SCH (10:23)
[2020-09-16] MEDS: Aspirin 81 MG TAB.CHEW PO SCH (10:23)
[2020-09-16 13:00] LABS: Bacteria,Urine Few per hpf (None-Few); Bilirubin,Urine Negative (Negative); Blood,Urine Small (Negative); Clarity,Urine Turbid (Clear); Color,Urine Yellow (Yellow); Glucose,Urine (UA) Normal (Normal); Hyaline Casts,Urine Few per lpf (None Seen); Ketones,Urine Trace mg/dL (Negative); Leukocyte Esterase,Urine Large (Negative); Mucus,Urine Few per lpf (None-Few); Nitrite,Urine Negative (Negative); Protein,Urine 30 mg/dL (Neg-Trace); RBC,Urine 15-30 per hpf (0-3); Specific Gravity,Urine 1.021 (1.010-1.025); Urobilinogen,Urine Normal (Normal); WBC,Urine TNTC per hpf (0-3)
[2020-09-16] MEDS: QUEtiapine Fumarate 25 MG TABLET PO SCH (20:34)
[2020-09-17] MEDS: *HR* Enoxaparin 40 MG/0.4 ML SYRINGE SQ SCH (05:47)
[2020-09-17] MEDS: Metoprolol XL (24 HR) Succ 50 MG TAB.ER.24H PO SCH (09:07)
[2020-09-17] MEDS: Aspirin 81 MG TAB.CHEW PO SCH (09:07)
[2020-09-17] MEDS: QUEtiapine Fumarate 25 MG TABLET PO SCH (20:06)
[2020-09-18] MEDS: *HR* Enoxaparin 40 MG/0.4 ML SYRINGE SQ SCH (05:15)
[2020-09-18 07:12] LABS: Hematocrit 40.4 % (37.5-50.1); Hemoglobin 12.6 g/dL (12.9-16.9); Mean Corpuscular HGB Conc 31.2 g/dL (31.6-35.5); Mean Corpuscular Hemoglobin 29.7 pg (28.0-33.3); Mean Corpuscular Volume 95.3 fL (83.0-100.0); Mean Platelet Volume 10.6 fL (9.4-12.4); Platelet Count 298 K/mcL (140-400); Red Blood Count 4.24 M/mcL (4.19-5.50); Red Cell Distribution Width 14.1 % (11.5-14.5); White Blood Count 7.2 K/mcL (4.3-11.1)
[2020-09-18 07:31] LABS: BUN/Creatinine Ratio 20 (6-26); Blood Urea Nitrogen 8 mg/dL (8-23); Calcium 8.6 mg/dL (8.6-10.3); Carbon Dioxide 29 mEq/L (23-29); Chloride 107 mEq/L (98-107); Glucose 94 mg/dL (70-105); Magnesium 1.6 mg/dL (1.6-2.6); Osmolality,Calculated 288 (280-300); Potassium 4.1 mEq/L (3.5-5.1); Sodium 140 mEq/L (136-145); eGFR For African Americans > 60 (> 60); eGFR For Non-African Americans > 60 (> 60)
[2020-09-18] MEDS: Metoprolol XL (24 HR) Succ 50 MG TAB.ER.24H PO SCH (08:02)
[2020-09-18] MEDS: Aspirin 81 MG TAB.CHEW PO SCH (08:02)
[2020-09-18 12:04] VITALS: BP 148/88
== END 2020-09-18 14:02 | disposition home health service (06) ==
LOC: 2NENU 11:16 → EMEROOARM 11:16 → 2NENU 15:09 → SUATTDRO 15:36 → 2NENU 22:43 → 3BNU 09-14 17:02
PROVIDERS: ADMIT Internal Medicine; ATTEND Internal Medicine

== ENCOUNTER 2021-05-08 21:17 | Observation (INO) ==
[2021-05-08] MEDS ORDERED: Isovue-370 500 ML BOTTLE IVP ONE (21:30)
[2021-05-08 21:54] LABS: Hematocrit 46.8 % (37.5-50.1); Hemoglobin 15.4 g/dL (12.9-16.9); Mean Corpuscular HGB Conc 32.9 g/dL (31.6-35.5); Mean Corpuscular Hemoglobin 31.1 pg (28.0-33.3); Mean Corpuscular Volume 94.5 fL (83.0-100.0); Mean Platelet Volume 10.5 fL (9.4-12.4); Platelet Count 155 K/mcL (140-400); Red Blood Count 4.95 M/mcL (4.19-5.50); Red Cell Distribution Width 14.3 % (11.5-14.5); White Blood Count 5.8 K/mcL (4.3-11.1)
[2021-05-08 22:01] LABS: INR 1.1; Prothrombin Time 13.2 Seconds (9.4-12.1)
[2021-05-08 22:04] LABS: Activated Partial Thrombo Time 33.1 Seconds (26.0-36.0)
[2021-05-08 22:17] LABS: BUN/Creatinine Ratio 23 (6-26); Blood Urea Nitrogen 15 mg/dL (8-23); Carbon Dioxide 29 mEq/L (23-29); Chloride 101 mEq/L (98-107); Glucose 112 mg/dL (70-105); Osmolality,Calculated 286 (280-300); Potassium 3.5 mEq/L (3.5-5.1); Sodium 137 mEq/L (136-145); eGFR For African Americans > 60 (> 60); eGFR For Non-African Americans > 60 (> 60)
[2021-05-08] MEDS: *HR* Labetalol 20 MG/4 ML SYRINGE IVP PRN ×2 (22:21→22:42)
[2021-05-08 22:28] LABS: Troponin I < 0.03 ng/mL (< 0.04)
[2021-05-08 22:39] LABS: Bilirubin,Urine Negative (Negative); Blood,Urine Moderate (Negative); Clarity,Urine Turbid (Clear); Color,Urine Yellow (Yellow); Glucose,Urine (UA) Normal (Normal); Ketones,Urine Trace mg/dL (Negative); Leukocyte Esterase,Urine Large (Negative); Mucus,Urine Few per lpf (None-Few); Nitrite,Urine Negative (Negative); PH,Urine 5.5 pH Units (5.0-8.0); Protein,Urine 50 mg/dL (Neg-Trace); Specific Gravity,Urine 1.022 (1.010-1.025); Squamous Epithelial Cell,Urine Few per hpf (None-Few); Urobilinogen,Urine Normal (Normal); WBC,Urine TNTC per hpf (0-3)
[2021-05-08 23:19] LABS: Calcium 9.5 mg/dL (8.6-10.3); Ethanol < 10 mg/dL (Less than 10)
[2021-05-08] MEDS ORDERED: cefTRIAXone 1,000 MG in Water for inj. (sterile) 10 ML IVP ONE (23:25)
[2021-05-09] MEDS ORDERED: Perflutren Lipid Microsphere 1.3 ML in 0.9 % Sodium Chloride 8.7 ML IVP PRN (01:05)
[2021-05-09] MEDS ORDERED: Furosemide 40 MG TABLET PO PRN (01:09)
[2021-05-09 05:16] LABS: Basophils # 0.1 K/mcL (0.0-0.2); Basophils % 1.1 %; Eosinophils # 0.2 K/mcL (0.0-0.6); Eosinophils % 3.3 %; Hematocrit 41.2 % (37.5-50.1); Immature Granulocytes % 0.3 % (0-4); Lymphocytes # 1.8 K/mcL (0.6-4.6); Lymphocytes % 27.8 %; Mean Corpuscular HGB Conc 33.3 g/dL (31.6-35.5); Mean Corpuscular Hemoglobin 31.1 pg (28.0-33.3); Mean Corpuscular Volume 93.4 fL (83.0-100.0); Mean Platelet Volume 10.1 fL (9.4-12.4); Monocytes # 0.7 K/mcL (0.0-1.3); Monocytes % 10.5 %; Neutrophils # 3.7 K/mcL (1.6-8.9); Platelet Count 159 K/mcL (140-400); Red Blood Count 4.41 M/mcL (4.19-5.50); Red Cell Distribution Width 14.2 % (11.5-14.5); White Blood Count 6.4 K/mcL (4.3-11.1)
[2021-05-09 05:17] LABS: Hemoglobin 13.7 g/dL (12.9-16.9)
[2021-05-09 05:36] LABS: Alanine Aminotransferase 7 Units/L (7-52); Albumin 3.4 g/dL (3.5-5.7); Albumin/Globulin Ratio 1.1 (1.1-2.2); Alkaline Phosphatase 45 Units/L (34-104); Aspartate Amino Transferase 14 Units/L (13-39); BUN/Creatinine Ratio 22 (6-26); Bilirubin,Total 0.7 mg/dL (0.3-1.0); Blood Urea Nitrogen 13 mg/dL (8-23); Calcium 8.7 mg/dL (8.6-10.3); Carbon Dioxide 26 mEq/L (23-29); Chloride 103 mEq/L (98-107); Chol/HDL Ratio 3.8 (0-4.9); Cholesterol 141 mg/dL (< 200); Globulin 3.1 g/dL (2.4-3.5); Glucose 103 mg/dL (70-105); HDL Cholesterol 37 mg/dL (40-59); LDL Cholesterol,Calculated 88 mg/dL (< 100); Osmolality,Calculated 284 (280-300); Potassium 3.7 mEq/L (3.5-5.1); Sodium 137 mEq/L (136-145); Total Protein 6.5 g/dL (6.4-8.9); Triglycerides 81 mg/dL (< 150); Troponin I < 0.03 ng/mL (< 0.04); eGFR For African Americans > 60 (> 60); eGFR For Non-African Americans > 60 (> 60)
[2021-05-09 05:39] LABS: Estimated Average Glucose 108 mg/dl; Hemoglobin A1C 5.4 %
[2021-05-09] MEDS ORDERED: Metoprolol XL (24 HR) Succ 50 MG TAB.ER.24H PO SCH (09:00)
[2021-05-09] MEDS ORDERED: Aspirin Enteric Coated 325 MG Tablet PO SCH (09:00)
[2021-05-09] MEDS ORDERED: cefTRIAXone 1,000 MG in Water for inj. (sterile) 10 ML IVP SCH (09:00)
[2021-05-09] MEDS ORDERED: amLODIPine 5 MG TABLET PO SCH (09:00)
[2021-05-09 10:29] VITALS: BP 148/90; TEMP 97.9; O2SAT 95
[2021-05-09 15:22] VITALS: PULSE 62
== END 2021-05-09 18:00 | disposition home or self-care (01) ==
LOC: EMEROOARM 21:17 → CDU 21:17
PROVIDERS: ADMIT Pharmacist; ATTEND Pharmacist

== ENCOUNTER 2021-06-15 16:06 | Inpatient (IN) ==
[2021-06-15] MEDS ORDERED: Isovue-370 500 ML BOTTLE IVP ONE (16:26)
[2021-06-15 16:51] LABS: Hematocrit 45.7 % (37.5-50.1); Mean Corpuscular HGB Conc 32.8 g/dL (31.6-35.5); Mean Corpuscular Hemoglobin 31.4 pg (28.0-33.3); Mean Corpuscular Volume 95.8 fL (83.0-100.0); Platelet Count 172 K/mcL (140-400); Red Blood Count 4.77 M/mcL (4.19-5.50); Red Cell Distribution Width 13.8 % (11.5-14.5); White Blood Count 6.4 K/mcL (4.3-11.1)
[2021-06-15 16:56] LABS: INR 1.1; Prothrombin Time 12.5 Seconds (9.4-12.1)
[2021-06-15 16:58] LABS: Activated Partial Thrombo Time 24.5 Seconds (26.0-36.0)
[2021-06-15] MEDS ORDERED: *HR* Labetalol 20 MG/4 ML SYRINGE IVP ONE (17:22)
[2021-06-15 17:26] LABS: BUN/Creatinine Ratio 15 (6-26); Blood Urea Nitrogen 9 mg/dL (8-23); Calcium 8.9 mg/dL (8.6-10.3); Carbon Dioxide 31 mEq/L (23-29); Chloride 103 mEq/L (98-107); Ethanol < 10 mg/dL (Less than 10); Glucose 105 mg/dL (70-105); Osmolality,Calculated 293 (280-300); Potassium 3.6 mEq/L (3.5-5.1); Sodium 142 mEq/L (136-145); Troponin I < 0.03 ng/mL (< 0.04); eGFR For African Americans > 60 (> 60); eGFR For Non-African Americans > 60 (> 60)
[2021-06-15] MEDS ORDERED: Naloxone 0.4 MG/ML INJ IVP PRN (21:48)
[2021-06-15] MEDS: niCARdipine 20 MG/200 ML MLS IVC SCH (23:07)
[2021-06-16] MEDS ORDERED: Haloperidol Lactate 5 MG/ML VIAL IVP ONE ×2 (01:05→04:29)
[2021-06-16 02:25] LABS: Hematocrit 45.1 % (37.5-50.1); Mean Corpuscular HGB Conc 33.3 g/dL (31.6-35.5); Mean Corpuscular Hemoglobin 31.3 pg (28.0-33.3); Mean Corpuscular Volume 94.2 fL (83.0-100.0); Mean Platelet Volume 10.4 fL (9.4-12.4); Platelet Count 177 K/mcL (140-400); Red Blood Count 4.79 M/mcL (4.19-5.50); Red Cell Distribution Width 13.6 % (11.5-14.5); White Blood Count 7.7 K/mcL (4.3-11.1)
[2021-06-16] MEDS ORDERED: *HR* LORazepam Oral Conc 2 MG/ML SL ONE (02:36)
[2021-06-16 02:41] LABS: Alanine Aminotransferase 7 Units/L (7-52); Albumin/Globulin Ratio 1.3 (1.1-2.2); Alkaline Phosphatase 53 Units/L (34-104); Aspartate Amino Transferase 17 Units/L (13-39); BUN/Creatinine Ratio 13 (6-26); Bilirubin,Total 1.2 mg/dL (0.3-1.0); Blood Urea Nitrogen 7 mg/dL (8-23); Calcium 8.9 mg/dL (8.6-10.3); Carbon Dioxide 28 mEq/L (23-29); Chloride 104 mEq/L (98-107); Globulin 3.1 g/dL (2.4-3.5); Glucose 113 mg/dL (70-105); Osmolality,Calculated 289 (280-300); Potassium 3.1 mEq/L (3.5-5.1); Sodium 140 mEq/L (136-145); Total Protein 7.1 g/dL (6.4-8.9); eGFR For African Americans > 60 (> 60); eGFR For Non-African Americans > 60 (> 60)
[2021-06-16] MEDS ORDERED: *HR* LORazepam 2 MG/ML VIAL IM STA (03:05)
[2021-06-16] MEDS ORDERED: *HR* LORazepam 2 MG/ML VIAL IVP ONE ×2 (04:29→07:51)
[2021-06-16] MEDS: niCARdipine 20 MG/200 ML MLS IVC SCH ×2 (05:26→05:27)
[2021-06-16] MEDS: *HR* Enoxaparin 40 MG/0.4 ML SYRINGE SQ SCH (05:30)
[2021-06-16 06:18] LABS: Folate 11.9 ng/mL (3.0-16.0)
[2021-06-16 06:20] LABS: Vitamin B12 > 1500 pg/mL (250-1100)
[2021-06-16] MEDS ORDERED: Potassium Chloride Elixir 20 MEQ/15 ML UDC PO ONE (07:45)
[2021-06-16] MEDS ORDERED: Potassium Chloride 40 MEQ, Lidocaine 1% 2 ML in 0.9 % Sodium Chloride 500 ML IVPB ONE (09:47)
[2021-06-16] MEDS ORDERED: Vancomycin 1,250 MG/262.5 ML IV.SOLN IVPB ONE (14:02)
[2021-06-16] MEDS: cefTRIAXone 1,000 MG in Water for inj. (sterile) 10 ML IVP SCH (14:20)
[2021-06-16] MEDS: 0.9 % Sodium Chloride 1,000 ML IVC SCH (15:16)
[2021-06-16] MEDS ORDERED: amLODIPine 5 MG TABLET PO SCH (15:45)
[2021-06-16 16:06] LABS: Bacteria,Urine Few per hpf (None-Few); Bilirubin,Urine Negative (Negative); Blood,Urine Small (Negative); Clarity,Urine Clear (Clear); Color,Urine Yellow (Yellow); Glucose,Urine (UA) Normal (Normal); Ketones,Urine Trace mg/dL (Negative); Leukocyte Esterase,Urine Large (Negative); Mucus,Urine Few per lpf (None-Few); Nitrite,Urine Negative (Negative); Protein,Urine 50 mg/dL (Neg-Trace); Specific Gravity,Urine 1.014 (1.010-1.025); Urobilinogen,Urine Normal (Normal); WBC,Urine TNTC per hpf (0-3)
[2021-06-16] MEDS: Metoprolol XL (24 HR) Succ 50 MG TAB.ER.24H PO SCH (16:52)
[2021-06-16] MEDS ORDERED: *HR* Dextrose 50 % in Water (Syg) 50 ML SYRINGE ONE (17:05)
[2021-06-16] MEDS ORDERED: Dextrose Gel 15 GM/37.5 ML TUBE PO PRN ×2 (17:06)
[2021-06-16] MEDS ORDERED: D5% in Water 1,000 ML IVC PRN (17:06)
[2021-06-16] MEDS: *HR* Dextrose 50 % in Water (Syg) 50 ML SYRINGE IVP PRN (17:14)
[2021-06-16] MEDS ORDERED: *HR* Labetalol 20 MG/4 ML SYRINGE IVP ONE (17:15)
[2021-06-16] MEDS: *HR* Labetalol 20 MG/4 ML SYRINGE IVP PRN (19:11)
[2021-06-17] MEDS: *HR* Labetalol 20 MG/4 ML SYRINGE IVP PRN ×3 (00:04→06:54)
[2021-06-17] MEDS: *HR* Dextrose 50 % in Water (Syg) 50 ML SYRINGE IVP PRN (00:04)
[2021-06-17] MEDS: 0.9 % Sodium Chloride 1,000 ML IVC SCH ×3 (03:14→16:32)
[2021-06-17] MEDS: *HR* Enoxaparin 40 MG/0.4 ML SYRINGE SQ SCH (06:35)
[2021-06-17] MEDS: amLODIPine 5 MG TABLET PO SCH (09:05)
[2021-06-17] MEDS: cefTRIAXone 1,000 MG in Water for inj. (sterile) 10 ML IVP SCH (09:05)
[2021-06-17] MEDS: Metoprolol XL (24 HR) Succ 50 MG TAB.ER.24H PO SCH (09:05)
[2021-06-17 10:21] LABS: Basophils # 0.1 K/mcL (0.0-0.2); Eosinophils # 0.3 K/mcL (0.0-0.6); Eosinophils % 4.1 %; Hemoglobin 14.8 g/dL (12.9-16.9); Immature Granulocytes % 0.3 % (0-4); Lymphocytes # 1.5 K/mcL (0.6-4.6); Lymphocytes % 20.2 %; Mean Corpuscular HGB Conc 32.2 g/dL (31.6-35.5); Mean Corpuscular Hemoglobin 30.5 pg (28.0-33.3); Mean Corpuscular Volume 94.8 fL (83.0-100.0); Mean Platelet Volume 10.9 fL (9.4-12.4); Monocytes # 0.6 K/mcL (0.0-1.3); Monocytes % 8.3 %; Neutrophils # 4.8 K/mcL (1.6-8.9); Platelet Count 160 K/mcL (140-400); Red Blood Count 4.85 M/mcL (4.19-5.50); Segmented Neutrophils % 66.1 %; White Blood Count 7.3 K/mcL (4.3-11.1)
[2021-06-17 10:42] LABS: Alanine Aminotransferase 6 Units/L (7-52); Albumin 3.5 g/dL (3.5-5.7); Albumin/Globulin Ratio 1.1 (1.1-2.2); Alkaline Phosphatase 47 Units/L (34-104); Aspartate Amino Transferase 16 Units/L (13-39); BUN/Creatinine Ratio 14 (6-26); Bilirubin,Total 1.3 mg/dL (0.3-1.0); Blood Urea Nitrogen 6 mg/dL (8-23); Calcium 8.6 mg/dL (8.6-10.3); Carbon Dioxide 27 mEq/L (23-29); Chloride 103 mEq/L (98-107); Globulin 3.3 g/dL (2.4-3.5); Glucose 86 mg/dL (70-105); Osmolality,Calculated 285 (280-300); Potassium 3.1 mEq/L (3.5-5.1); Sodium 139 mEq/L (136-145); Total Protein 6.8 g/dL (6.4-8.9); eGFR For African Americans > 60 (> 60); eGFR For Non-African Americans > 60 (> 60)
[2021-06-17] MEDS ORDERED: Potassium Chloride Elixir 20 MEQ/15 ML UDC PO ONE (11:21)
[2021-06-17] MEDS: hydrALAZINE 25 MG TABLET PO SCH ×2 (16:32→23:56)
[2021-06-17] MEDS ORDERED: *HR* LORazepam 2 MG/ML VIAL IVP ONE ×2 (20:46→21:05)
[2021-06-17] MEDS ORDERED: *HR* LORazepam 2 MG/ML VIAL ONE (20:49)
[2021-06-18] MEDS: *HR* Labetalol 20 MG/4 ML SYRINGE IVP PRN ×3 (00:36→20:08)
[2021-06-18] MEDS ORDERED: *HR* Labetalol 20 MG/4 ML SYRINGE IVP ONE (02:04)
[2021-06-18] MEDS: 0.9 % Sodium Chloride 1,000 ML IVC SCH (02:26)
[2021-06-18 02:36] LABS: Basophils # 0.1 K/mcL (0.0-0.2); Basophils % 0.8 %; Eosinophils # 0.4 K/mcL (0.0-0.6); Eosinophils % 4.7 %; Hemoglobin 15.6 g/dL (12.9-16.9); Immature Granulocytes % 0.2 % (0-4); Lymphocytes # 1.6 K/mcL (0.6-4.6); Lymphocytes % 19.1 %; Mean Corpuscular HGB Conc 33.2 g/dL (31.6-35.5); Mean Corpuscular Hemoglobin 31.5 pg (28.0-33.3); Mean Corpuscular Volume 94.9 fL (83.0-100.0); Mean Platelet Volume 10.7 fL (9.4-12.4); Monocytes # 0.8 K/mcL (0.0-1.3); Neutrophils # 5.5 K/mcL (1.6-8.9); Platelet Count 164 K/mcL (140-400); Red Blood Count 4.95 M/mcL (4.19-5.50); Red Cell Distribution Width 14.1 % (11.5-14.5); Segmented Neutrophils % 66.2 %; White Blood Count 8.3 K/mcL (4.3-11.1)
[2021-06-18 03:06] LABS: BUN/Creatinine Ratio 16 (6-26); Blood Urea Nitrogen 7 mg/dL (8-23); Calcium 8.9 mg/dL (8.6-10.3); Carbon Dioxide 25 mEq/L (23-29); Chloride 105 mEq/L (98-107); Glucose 93 mg/dL (70-105); Osmolality,Calculated 286 (280-300); Potassium 3.9 mEq/L (3.5-5.1); Sodium 139 mEq/L (136-145); eGFR For African Americans > 60 (> 60); eGFR For Non-African Americans > 60 (> 60)
[2021-06-18] MEDS: *HR* Enoxaparin 40 MG/0.4 ML SYRINGE SQ SCH (05:19)
[2021-06-18] MEDS: Metoprolol XL (24 HR) Succ 50 MG TAB.ER.24H PO SCH (08:44)
[2021-06-18] MEDS: hydroCHLOROthiazide 25 MG TABLET PO SCH (08:44)
[2021-06-18] MEDS: amLODIPine 5 MG TABLET PO SCH (08:44)
[2021-06-18] MEDS: hydrALAZINE 25 MG TABLET PO SCH ×3 (08:44→23:21)
[2021-06-18] MEDS: Aspirin Enteric Coated 325 MG Tablet PO SCH (14:53)
[2021-06-18] MEDS: Amoxicillin/Clavulanate 500 MG TABLET PO SCH (17:15)
[2021-06-19] MEDS: *HR* Enoxaparin 40 MG/0.4 ML SYRINGE SQ SCH (05:19)
[2021-06-19 08:03] LABS: Basophils # 0.1 K/mcL (0.0-0.2); Basophils % 0.9 %; Eosinophils # 0.4 K/mcL (0.0-0.6); Eosinophils % 4.8 %; Hematocrit 47.9 % (37.5-50.1); Hemoglobin 15.6 g/dL (12.9-16.9); Immature Granulocytes % 0.4 % (0-4); Lymphocytes # 1.2 K/mcL (0.6-4.6); Lymphocytes % 14.9 %; Mean Corpuscular HGB Conc 32.6 g/dL (31.6-35.5); Mean Corpuscular Hemoglobin 30.6 pg (28.0-33.3); Mean Corpuscular Volume 94.1 fL (83.0-100.0); Mean Platelet Volume 10.9 fL (9.4-12.4); Monocytes % 12.3 %; Neutrophils # 5.5 K/mcL (1.6-8.9); Platelet Count 167 K/mcL (140-400); Red Blood Count 5.09 M/mcL (4.19-5.50); Segmented Neutrophils % 66.7 %; White Blood Count 8.2 K/mcL (4.3-11.1)
[2021-06-19 08:28] LABS: BUN/Creatinine Ratio 21 (6-26); Blood Urea Nitrogen 10 mg/dL (8-23); Calcium 9.1 mg/dL (8.6-10.3); Carbon Dioxide 26 mEq/L (23-29); Chloride 100 mEq/L (98-107); Glucose 93 mg/dL (70-105); Osmolality,Calculated 283 (280-300); Potassium 3.3 mEq/L (3.5-5.1); Sodium 137 mEq/L (136-145); eGFR For African Americans > 60 (> 60); eGFR For Non-African Americans > 60 (> 60)
[2021-06-19] MEDS: amLODIPine 5 MG TABLET PO SCH (08:30)
[2021-06-19] MEDS: hydroCHLOROthiazide 25 MG TABLET PO SCH (08:31)
[2021-06-19] MEDS: Amoxicillin/Clavulanate 500 MG TABLET PO SCH (08:31)
[2021-06-19] MEDS: Metoprolol XL (24 HR) Succ 50 MG TAB.ER.24H PO SCH (08:31)
[2021-06-19] MEDS: Aspirin Enteric Coated 325 MG Tablet PO SCH (08:31)
[2021-06-19] MEDS: hydrALAZINE 25 MG TABLET PO SCH ×3 (08:31→23:30)
[2021-06-20 01:43] LABS: BUN/Creatinine Ratio 30 (6-26); Blood Urea Nitrogen 15 mg/dL (8-23); Calcium 9.4 mg/dL (8.6-10.3); Carbon Dioxide 25 mEq/L (23-29); Chloride 101 mEq/L (98-107); Glucose 131 mg/dL (70-105); Osmolality,Calculated 285 (280-300); Potassium 3.8 mEq/L (3.5-5.1); Sodium 136 mEq/L (136-145); eGFR For African Americans > 60 (> 60); eGFR For Non-African Americans > 60 (> 60)
[2021-06-20] MEDS: *HR* Enoxaparin 40 MG/0.4 ML SYRINGE SQ SCH (05:22)
[2021-06-20] MEDS: Metoprolol XL (24 HR) Succ 50 MG TAB.ER.24H PO SCH (09:29)
[2021-06-20] MEDS: hydrALAZINE 25 MG TABLET PO SCH ×3 (09:30→23:35)
[2021-06-20] MEDS: amLODIPine 5 MG TABLET PO SCH (09:30)
[2021-06-20] MEDS: Aspirin Enteric Coated 325 MG Tablet PO SCH (09:30)
[2021-06-20] MEDS: hydroCHLOROthiazide 25 MG TABLET PO SCH (09:30)
[2021-06-21 05:17] LABS: Basophils # 0.1 K/mcL (0.0-0.2); Eosinophils # 0.5 K/mcL (0.0-0.6); Eosinophils % 6.7 %; Hematocrit 46.7 % (37.5-50.1); Immature Granulocytes % 0.3 % (0-4); Lymphocytes # 1.5 K/mcL (0.6-4.6); Lymphocytes % 20.8 %; Mean Corpuscular HGB Conc 32.1 g/dL (31.6-35.5); Mean Corpuscular Hemoglobin 30.6 pg (28.0-33.3); Mean Corpuscular Volume 95.3 fL (83.0-100.0); Mean Platelet Volume 10.4 fL (9.4-12.4); Monocytes # 0.8 K/mcL (0.0-1.3); Monocytes % 11.7 %; Neutrophils # 4.3 K/mcL (1.6-8.9); Platelet Count 177 K/mcL (140-400); Red Cell Distribution Width 14.4 % (11.5-14.5); Segmented Neutrophils % 59.5 %; White Blood Count 7.2 K/mcL (4.3-11.1)
[2021-06-21] MEDS: *HR* Enoxaparin 40 MG/0.4 ML SYRINGE SQ SCH (05:21)
[2021-06-21 05:30] LABS: BUN/Creatinine Ratio 42 (6-26); Blood Urea Nitrogen 25 mg/dL (8-23); Calcium 9.2 mg/dL (8.6-10.3); Carbon Dioxide 26 mEq/L (23-29); Chloride 101 mEq/L (98-107); Glucose 107 mg/dL (70-105); Osmolality,Calculated 287 (280-300); Potassium 3.4 mEq/L (3.5-5.1); Sodium 136 mEq/L (136-145); eGFR For African Americans > 60 (> 60); eGFR For Non-African Americans > 60 (> 60)
[2021-06-21] MEDS: hydrALAZINE 25 MG TABLET PO SCH ×3 (09:34→23:34)
[2021-06-21] MEDS: Aspirin Enteric Coated 325 MG Tablet PO SCH (09:34)
[2021-06-21] MEDS: amLODIPine 5 MG TABLET PO SCH (09:34)
[2021-06-21] MEDS: Metoprolol XL (24 HR) Succ 50 MG TAB.ER.24H PO SCH (09:34)
[2021-06-21] MEDS: hydroCHLOROthiazide 25 MG TABLET PO SCH (09:34)
[2021-06-22] MEDS: *HR* Enoxaparin 40 MG/0.4 ML SYRINGE SQ SCH (05:06)
[2021-06-22] MEDS: hydrALAZINE 25 MG TABLET PO SCH ×2 (08:12→14:28)
[2021-06-22] MEDS: Aspirin Enteric Coated 325 MG Tablet PO SCH (08:12)
[2021-06-22] MEDS: hydroCHLOROthiazide 25 MG TABLET PO SCH (08:12)
[2021-06-22] MEDS: Metoprolol XL (24 HR) Succ 50 MG TAB.ER.24H PO SCH (08:13)
[2021-06-22] MEDS: amLODIPine 5 MG TABLET PO SCH (08:13)
[2021-06-22] MEDS ORDERED: levETIRAcetam 250 MG TABLET PO SCH (11:15)
[2021-06-22] MEDS ORDERED: *HR* LORazepam 2 MG/ML VIAL ONE (11:16)
[2021-06-22] MEDS ORDERED: 0.9 % Sodium Chloride 1,000 ML ONE (11:21)
[2021-06-22] MEDS: levETIRAcetam 250 MG TABLET PO SCH ×2 (18:37→21:51)
[2021-06-23] MEDS: hydrALAZINE 25 MG TABLET PO SCH ×2 (01:09→08:13)
[2021-06-23] MEDS: *HR* Enoxaparin 40 MG/0.4 ML SYRINGE SQ SCH (06:02)
[2021-06-23] MEDS: levETIRAcetam 250 MG TABLET PO SCH ×2 (08:11→21:09)
[2021-06-23] MEDS: Metoprolol XL (24 HR) Succ 50 MG TAB.ER.24H PO SCH (08:11)
[2021-06-23] MEDS: Aspirin Enteric Coated 325 MG Tablet PO SCH (08:13)
[2021-06-23] MEDS: amLODIPine 5 MG TABLET PO SCH (08:13)
[2021-06-23] MEDS: hydroCHLOROthiazide 25 MG TABLET PO SCH (08:13)
[2021-06-23 19:50] LABS: Hematocrit 46.6 % (37.5-50.1); Hemoglobin 15.3 g/dL (12.9-16.9); Immature Granulocytes % 0.4 % (0-4); Lymphocytes % 23.9 %; Mean Corpuscular HGB Conc 32.8 g/dL (31.6-35.5); Mean Corpuscular Volume 94.5 fL (83.0-100.0); Mean Platelet Volume 10.6 fL (9.4-12.4); Monocytes % 10.7 %; Platelet Count 226 K/mcL (140-400); Red Blood Count 4.93 M/mcL (4.19-5.50); Segmented Neutrophils % 57.1 %; White Blood Count 8.2 K/mcL (4.3-11.1)
[2021-06-23 19:51] LABS: Basophils # 0.1 K/mcL (0.0-0.2); Basophils % 1.3 %; Eosinophils # 0.5 K/mcL (0.0-0.6); Eosinophils % 6.6 %; Monocytes # 0.9 K/mcL (0.0-1.3); Neutrophils # 4.7 K/mcL (1.6-8.9)
[2021-06-23 20:10] LABS: BUN/Creatinine Ratio 39 (6-26); Blood Urea Nitrogen 35 mg/dL (8-23); Calcium 9.2 mg/dL (8.6-10.3); Carbon Dioxide 29 mEq/L (23-29); Chloride 101 mEq/L (98-107); Glucose 123 mg/dL (70-105); Osmolality,Calculated 293 (280-300); Potassium 3.7 mEq/L (3.5-5.1); Sodium 137 mEq/L (136-145); eGFR For African Americans > 60 (> 60); eGFR For Non-African Americans > 60 (> 60)
[2021-06-24] MEDS: *HR* Enoxaparin 40 MG/0.4 ML SYRINGE SQ SCH (06:29)
[2021-06-24] MEDS: amLODIPine 5 MG TABLET PO SCH (08:27)
[2021-06-24] MEDS: Metoprolol XL (24 HR) Succ 50 MG TAB.ER.24H PO SCH (08:27)
[2021-06-24] MEDS: Aspirin Enteric Coated 325 MG Tablet PO SCH (08:27)
[2021-06-24] MEDS: levETIRAcetam 250 MG TABLET PO SCH ×2 (08:28→22:00)
[2021-06-24] MEDS: hydroCHLOROthiazide 25 MG TABLET PO SCH (08:28)
[2021-06-24 10:04] LABS: Basophils # 0.1 K/mcL (0.0-0.2); Basophils % 1.2 %; Eosinophils # 0.3 K/mcL (0.0-0.6); Eosinophils % 3.8 %; Hematocrit 48.8 % (37.5-50.1); Immature Granulocytes % 0.4 % (0-4); Lymphocytes # 1.5 K/mcL (0.6-4.6); Mean Corpuscular HGB Conc 32.8 g/dL (31.6-35.5); Mean Corpuscular Hemoglobin 30.9 pg (28.0-33.3); Mean Corpuscular Volume 94.2 fL (83.0-100.0); Monocytes # 0.6 K/mcL (0.0-1.3); Monocytes % 8.1 %; Neutrophils # 5.3 K/mcL (1.6-8.9); Platelet Count 234 K/mcL (140-400); Red Blood Count 5.18 M/mcL (4.19-5.50); Red Cell Distribution Width 13.7 % (11.5-14.5); Segmented Neutrophils % 67.5 %; White Blood Count 7.8 K/mcL (4.3-11.1)
[2021-06-24 10:24] LABS: BUN/Creatinine Ratio 36 (6-26); Blood Urea Nitrogen 25 mg/dL (8-23); Calcium 9.8 mg/dL (8.6-10.3); Carbon Dioxide 31 mEq/L (23-29); Chloride 99 mEq/L (98-107); Glucose 132 mg/dL (70-105); Osmolality,Calculated 294 (280-300); Potassium 3.3 mEq/L (3.5-5.1); Sodium 139 mEq/L (136-145); eGFR For African Americans > 60 (> 60); eGFR For Non-African Americans > 60 (> 60)
[2021-06-25] MEDS: *HR* Enoxaparin 40 MG/0.4 ML SYRINGE SQ SCH (05:57)
[2021-06-25] MEDS: amLODIPine 5 MG TABLET PO SCH (07:48)
[2021-06-25] MEDS: hydroCHLOROthiazide 25 MG TABLET PO SCH (07:48)
[2021-06-25] MEDS: Aspirin Enteric Coated 325 MG Tablet PO SCH (07:48)
[2021-06-25] MEDS: Metoprolol XL (24 HR) Succ 50 MG TAB.ER.24H PO SCH (07:49)
[2021-06-25] MEDS: levETIRAcetam 250 MG TABLET PO SCH (07:49)
[2021-06-25 08:27] LABS: Basophils # 0.1 K/mcL (0.0-0.2); Basophils % 1.6 %; Eosinophils # 0.4 K/mcL (0.0-0.6); Eosinophils % 5.5 %; Hematocrit 46.2 % (37.5-50.1); Hemoglobin 14.8 g/dL (12.9-16.9); Immature Granulocytes % 0.4 % (0-4); Lymphocytes # 1.8 K/mcL (0.6-4.6); Lymphocytes % 23.6 %; Mean Corpuscular Hemoglobin 30.4 pg (28.0-33.3); Mean Corpuscular Volume 94.9 fL (83.0-100.0); Mean Platelet Volume 11.1 fL (9.4-12.4); Monocytes # 0.8 K/mcL (0.0-1.3); Monocytes % 10.5 %; Neutrophils # 4.3 K/mcL (1.6-8.9); Platelet Count 226 K/mcL (140-400); Red Blood Count 4.87 M/mcL (4.19-5.50); Red Cell Distribution Width 13.8 % (11.5-14.5); Segmented Neutrophils % 58.4 %; White Blood Count 7.4 K/mcL (4.3-11.1)
[2021-06-25 08:46] LABS: BUN/Creatinine Ratio 39 (6-26); Blood Urea Nitrogen 24 mg/dL (8-23); Calcium 9.4 mg/dL (8.6-10.3); Carbon Dioxide 30 mEq/L (23-29); Chloride 101 mEq/L (98-107); Glucose 84 mg/dL (70-105); Osmolality,Calculated 291 (280-300); Potassium 3.5 mEq/L (3.5-5.1); Sodium 139 mEq/L (136-145); eGFR For African Americans > 60 (> 60); eGFR For Non-African Americans > 60 (> 60)
[2021-06-25 14:41] VITALS: BP 91/56; PULSE 73; TEMP 97.6; O2SAT 92
[2021-06-25 17:13] LABS: Adenovirus Not Detected (Not Detect); Bordetella Pertussis Not Detected (Not Detect); Chlamydophila pneumoniae Not Detected (Not Detect); Coronavirus 229E Not Detected (Not Detect); Coronavirus HKU1 Not Detected (Not Detect); Coronavirus NL63 Not Detected (Not Detect); Coronavirus OC43 Not Detected (Not Detect); Human Metapneumovirus Not Detected (Not Detect); Human Rhinovirus/Enterovirus Not Detected (Not Detect); Influenza A Subtype 2009 H1 Not Detected (Not Detect); Influenza B Not Detected (Not Detect); Mycoplasma pneumoniae Not Detected (Not Detect); Parainfluenza Virus 1 Not Detected (Not Detect); Parainfluenza Virus 2 Not Detected (Not Detect); Parainfluenza Virus 3 Not Detected (Not Detect); Parainfluenza Virus 4 Not Detected (Not Detect); Respiratory Syncytial Virus Not Detected (Not Detect); SARS-CoV-2 Not Detected (Not Detect)
[2021-06-26] MEDS ORDERED: hydroCHLOROthiazide 25 MG TABLET PO SCH (09:00)
== END 2021-06-25 20:16 | DRG 304 ==
LOC: EMEROOARM 16:06 → 2NNU 16:06 → 3BNU 06-18 12:14
PROVIDERS: ADMIT Internal Medicine; ATTEND Internal Medicine